=== PATIENT | male | born 1930 | race American Indian/Alaskan Native ===

== ENCOUNTER 2022-05-06 17:04 | Inpatient (IN) | payer MEDICARE ==
[2022-05-06] MEDS ORDERED: ATROPINE 1 MG/ML VIAL IV ONE (19:26)
[2022-05-06] MEDS ORDERED: SODIUM CHLORIDE 0.9% 1000 ML 1,000 ML IV ONE (19:27)
[2022-05-06] MEDS ORDERED: ATROPINE 0.1% (1 MG/10 ML) CARDIAC SYRINGE ONE (19:32)
--- NOTE | 2022-05-06 20:29 | XRay Report ---
CHEST 1 VIEW 05/06/2022 8:06 PM INDICATION / CLINICAL INFORMATION: dizziness, bradycardia, sob. COMPARISON: None available. FINDINGS: SUPPORT DEVICES: None. HEART / MEDIASTINUM: No significant abnormality. LUNGS / PLEURA: No significant pulmonary or pleural abnormality. No pneumothorax. ADDITIONAL FINDINGS: No significant additional findings. IMPRESSION: 1. No acute findings. Signer Name: Nacho Rayo MD Signed: 05/06/2022 8:25 PM Workstation Name: [id number]
--- NOTE | 2022-05-06 20:32 | Emergency Department Report ---
HPI - General Chief Complaint: Arrhythmia/Palpitations PUI?: No Time Seen by Provider: 05/06/22 19:35 - HPI HPI: Patient is a 89-year-old male with history of hypertension, brought in by EMS for low heart rate. HPI is provided by the patient's daughter, Renee London. Per her verbal report, the patient undergoes remote blood pressure and heart rate monitoring through the [facility]. She states that he last underwent evaluation of his vitals last week Friday. It was checked again today, which is Friday, and he was found to have "have a low heart rate." Patient has also been complaining of lightheadedness and dizziness for the past 2 days. Patient denies any pain. ED Review of Systems ROS: Stated complaint: SLOW HR Other details as noted in HPI Physical Exam - Physical Exam Vital Signs: Vital Signs 05/06/22 18:23 Temperature 97.8 F Pulse Rate 50 L Respiratory 18 Rate Blood Pressure 130/62 [Right] O2 Sat by Pulse 97 Oximetry General: Gen: pt is well appearing, no acute distress HEENT: Normocephalic atraumatic pupils equally round and reactive to light extraocular muscles intact sclera anicteric Neck: Full range of motion, no midline spinal tenderness palpation, no JVD, no carotid bruits, no nuchal rigidity CVS: S1-S2 regular rhythm, bradycardic, no gallops rubs or murmurs Pulmonary: Clear to auscultation bilaterally, no wheezes rales or rhonchi Abdomen: Soft nondistended nontender no guarding or rebound tenderness, no palpable deformities or step-offs, normal active bowel sounds, no hepatosplenomegaly, no pulsatile masses : Deferred Extremities: No cyanosis no clubbing no edema, intact distal peripheral pulses, Integumentary: Skin normal, no petechia no purpura no abscess no lacerations no evidence of trauma no evidence of infection Neuro: Patient is awake alert and oriented to person place time situation, mentating well, cranial nerves II through XII intact, no focal neurodeficits, sensation grossly tact Psych: Calm cooperative, mood affect normal ED Course Vital Signs 05/06/22 18:23 Temperature 97.8 F Pulse Rate 50 L Respiratory 18 Rate Blood Pressure 130/62 [Right] O2 Sat by Pulse 97 Oximetry - Reevaluation(s) Reevaluation #1: 05/06/22 20:48 I spoke to the pt's daughter, Renee London, . Reevaluation #2: 05/06/22 21:10 pt attempted to stand; c/o dizziness Reevaluation #3: 05/06/22 21:47 Patient's daughter is present. She is provided a copy of the patient's current medication regimen at home. Patient is on 1. Atorvastatin 40mg PO QHS 2. HCTZ/Lisinopril 20m PO 3. Zoloft 50mg PO q daily 4. Seroquil 100mg QHS 5. Gabapentin 100mg PO QHS 6/ Doxazopine 10mg PO daily - Consultations Consultation #1: 05/06/22 21:50: I spoke to the on-call teacher of the deaf/hard of hearing, . He independently reviewed the patient's electrocardiogram. Per his request, the patient is to receive of central line and is to be placed on a dopamine drip at 5 mcg/kg/min. He advises that the heart rate be targeted to 50 to 60 bpm, no higher. Patient will be seen by cardiology in the morning. - Central Line Placement Right Femoral Consent Obtained: written consent Time Out Performed: Yes Patient Placed on Monitor/Pulse Ox: Yes MD Prep: mask, gown, gloves Central Line Prep: Chlorhexidine scrub Local Anesthesia Used: Lidocaine 1%, with Epi Ultrasound Used for Placement: Yes Central Line Lumen Inserted: triple Reason for Insertion: High Alert Medication Bloods Obtained for Lab: No Central Line Position: good blood return, all ports aspirated, flus, sutured in place with 2-0 Dressing Applied: Tegaderm Patient Tolerated Procedure: well Complications: none ED Medical Decision Making - Lab Data Result diagrams: 05/06/22 20:10 05/06/22 20:10 - EKG Data -: EKG Interpreted by Me Rate: bradycardia - EKG Data When compared to previous EKG there are: no significant change, previous EKG unavailable 05/06/22 20:30 EKG interpreted by me: Ventricular rate 32 bpm. P waves are present and proceed every QRS complex. Intervals normal. No ST segment depressions or elevations. Patient has isolated T wave flattening in V3. No ectopic. No arrhythmia. Normal axis. Sinus bradycardia. - Radiology Data Radiology results: report reviewed - Medical Decision Making 89yo M p/w symptomatic bradycardia. Pt's heart rate remained 34-36bpm persistently. Labs and diagnostic imaging results reviewed. Case discussed via telephone with nursing home admissions director teacher of the deaf/hard of hearing, Dr. Stearns. See patient's electronic health record for his documented recommendation. Right femoral central line placed by me. Patient had dopamine drip placed at a rate of 5 mics per KG per minute. He has been admitted to the CCU by . Critical Care Time: Yes Critical care time in (mins) excluding proc time.: 30 Critical care attestation.: If time is entered above; I have spent that time in minutes in the direct care of this critically ill patient, excluding procedure time. ED Disposition Clinical Impression: Symptomatic bradycardia Disposition: ADMITTED INPATIENT Is pt being admited?: Yes Does the pt Need Aspirin: No Condition: Stable
[2022-05-06 20:49] LABS: Basophils # (Auto) 0.2 K/mm3 (0.0-0.1); Basophils % (Auto) 2.1 % (0.0-1.8); Eosinophils # (Auto) 0.1 K/mm3 (0.0-0.4); Lymphocytes # (Auto) 1.9 K/mm3 (1.2-5.4); Lymphocytes % (Auto) 26.1 % (13.4-35.0); Mean Corpuscular HGB Conc 31 % (32-34); Mean Corpuscular Volume 75 fl (84-94); Monocytes # (Auto) 0.5 K/mm3 (0.0-0.8); Monocytes % (Auto) 7.1 % (0.0-7.3); Platelet Count 138 K/mm3 (140-440); Red Blood Count 5.46 M/mm3 (3.65-5.03)
[2022-05-06 20:54] LABS: Hematocrit 41.1 % (35.5-45.6); Hemoglobin 12.5 gm/dl (11.8-15.2)
[2022-05-06 21:11] LABS: Alanine Aminotransferase 11 units/L (7-56); Albumin 3.8 g/dL (3.9-5); BUN/Creatinine Ratio 24; Blood Urea Nitrogen 22 mg/dL (9-20); Calcium 9.3 mg/dL (8.4-10.2); Hemolysis Index 13
[2022-05-06] MEDS ORDERED: DOPamine 800 MG/D5W 250ML 800 MG/250 ML BAG IV ONE (21:58)
--- NOTE | 2022-05-06 22:59 | Cat Scan Report ---
CT head/brain wo con INDICATION: dizziness, unsteady gait. TECHNIQUE: Routine CT head. All CT scans at this location are performed using CT dose reduction for A YARELY by means of automated exposure control. COMPARISON: None available. FINDINGS: Intracranial: Gomez-white matter differentiation is maintained. Probable chronic microvascular ischemi c changes are seen along the periventricular white matter. No intracranial hemorrhage. No extra axial collection. No hydrocephalus. No herniation. There is age-appropriate generalized atrophy. Sinuses: Paranasal sinuses and mastoid air cells are essentially clear. Orbits: Globes are intact. Calvarium: No acute fracture. IMPRESSION: 1. No acute intracranial abnormality. Signer Name: Marcellus Centeno MD Signed: 05/06/2022 10:55 PM Workstation Name: [id number]
[2022-05-06] MEDS ORDERED: QUEtiapine 100 MG TAB PO ONE (23:46)
[2022-05-06] MEDS ORDERED: MAGNESIUM HYDROXIDE (MOM) ORAL LIQD UDC PO PRN (23:57)
[2022-05-06] MEDS ORDERED: MORPHINE 4 MG/1 ML INJ IV PRN (23:57)
[2022-05-06] MEDS ORDERED: MORPHINE 2 MG/1 ML INJ IV PRN (23:57)
[2022-05-06] MEDS ORDERED: ONDANSETRON 4 MG/2 ML INJ IV PRN (23:57)
[2022-05-06] MEDS ORDERED: ACETAMINOPHEN 325 MG TAB PO PRN (23:57)
--- NOTE | 2022-05-07 00:10 | History and Physical Report ---
History of Present Illness Date of examination: 05/06/22 Date of admission: 05/06/2022 Chief complaint: Low heart rate History of present illness: 89-year-old male with known history of hypertension and dementia presenting to the emergency room via EMS today for low heart rate. Most of the history was gotten from the ER staff who indicates that patient had been receiving Lovenox vital sign monitoring through the [facility]. Last vital sign check was about a week ago. However vital signs were checked today was found to have a low heart rate. Patient was then encouraged to report to the emergency room. He received some atropine enroute to the hospital. Patient has been having lightheadedness and dizziness over the past 2 days had a little bit of changes in mental status today. Has been no fever or chills, no chest pain or shortness of breath no nausea vomiting and no abdominal pain. Work-up in the emergency room today, labs were remarkable for BUN of 22 and creatinine of 0.9. CT scan of the head was unremarkable. Chest x-ray shows no acute abnormality. Patient has been admitted for evaluation of his bradycardia and changes in mental status. Past History Past Medical History: hypertension, hyperlipidemia Past Surgical History: Other (unobtainable) Social history: other (Unobtainable) Family history: other (Unobtainable) Medications and Allergies Allergies Allergy/AdvReac Type Severity Reaction Status Date / Time No Known Allergies Allergy Verified 05/06/22 18:25 Active Meds: Active Medications Acetaminophen (Acetaminophen 325 Mg Tab) 650 mg PO Q6H PRN PRN Reason: Pain MILD(1-3)/Fever >100.5/AHMADI Heparin Sodium (Porcine) (Heparin 5,000 Unit/1 Ml Vial) 5,000 unit SUB-Q Q8HR NAZANIN Dopamine HCl/Dextrose (Dopamine 800 Mg/D5w 250ml) 800 mg in 250 mls @ 6.804 mls/hr IV TITR ONE; Protocol Stop: 05/08/22 10:42 Last Admin: 05/06/22 22:53 Dose: 5 mcg/kg/min, 6.804 mls/hr Sodium Chloride (Nacl 0.9% 1000 Ml) 1,000 mls @ 75 mls/hr IV DIRECT NAZANIN Magnesium Hydroxide (Magnesium Hydroxide (Mom) Oral Liqd Udc) 30 ml PO Q4H PRN PRN Reason: Constipation Morphine Sulfate (Morphine 2 Mg/1 Ml Inj) 2 mg IV Q4H PRN PRN Reason: Pain, Moderate (4-6) Morphine Sulfate (Morphine 4 Mg/1 Ml Inj) 4 mg IV Q4H PRN PRN Reason: Pain , Severe (7-10) Ondansetron HCl (Ondansetron 4 Mg/2 Ml Inj) 4 mg IV Q8H PRN PRN Reason: Nausea And Vomiting Sodium Chloride (Sodium Chloride 0.9% 10 Ml Flush Syringe) 10 ml IV BID NAZANIN Sodium Chloride (Sodium Chloride 0.9% 10 Ml Flush Syringe) 10 ml IV PRN PRN PRN Reason: LINE FLUSH Review of Systems ROS unobtainable: due to mental status Exam - Constitutional Vitals: Temp Pulse Resp BP Pulse Ox 97.9 F 49 L 17 169/50 98 05/06/22 21:28 05/06/22 21:28 05/06/22 21:28 05/06/22 21:28 05/06/22 21:28 General appearance: Present: no acute distress, well-nourished - EENT Eyes: Present: PERRL, EOM intact. Absent: scleral icterus ENT: hearing intact, clear oral mucosa, dentition normal - Neck Neck: Present: supple, normal ROM - Respiratory Respiratory effort: normal Respiratory: bilateral: CTA - Cardiovascular Rhythm: regular Heart Sounds: Present: S1 & S2. Absent: gallop, systolic murmur, diastolic murmur, rub, click - Extremities Extremities: no ischemia, pulses intact, pulses symmetrical, No edema, normal temperature, normal color, Full ROM Peripheral Pulses: within normal limits - Abdominal General gastrointestinal: Present: soft, non-tender, non-distended, normal bowel sounds. Absent: mass - Integumentary Integumentary: Present: clear, warm, dry, normal turgor. Absent: rash - Musculoskeletal Musculoskeletal: strength equal bilaterally - Psychiatric Psychiatric: cooperative - Neurologic Neurologic: other (Confused) HEART Score - HEART Score Troponin: Troponin T < 0.010 ng/mL (0.00-0.029) 05/06/22 20:10 Results - Labs CBC & Chem 7: 05/06/22 20:10 05/06/22 20:10 Labs: Abnormal lab results 05/06/22 05/06/22 Range/Units 20:10 20:10 RBC 5.46 H (3.65-5.03) M/mm3 MCV 75 L (84-94) fl MCH 23 L (28-32) pg MCHC 31 L (32-34) % Plt Count 138 L (140-440) K/mm3 Baso % (Auto) 2.1 H (0.0-1.8) % Baso # (Auto) 0.2 H (0.0-0.1) K/mm3 BUN 22 H (9-20) mg/dL Albumin 3.8 L (3.9-5) g/dL Assessment and Plan Assessment: 1.Symptomatic Bradycardia 2.Hypertension 3.Dyslipidemia 4.Dementia 5.Dehydration Plan: 1.Admitted into the intensive care unit 2.Placed on dopamine drip 3.Await cardiology evaluation & recommendations. 4.Resume routine home medications once reconciled. 5.Patient on IV fluid. Will monitor chemistry. DVT Prophylaxis: SQ heparin Code status: Full Code
[2022-05-07] MEDS ORDERED: diazePAM 10 MG/2 ML SYRINGE IV ONE ×2 (01:46→06:50)
[2022-05-07] MEDS ORDERED: diphenhydrAMINE 50 MG/ML VIAL IV ONE ×2 (01:46→06:50)
[2022-05-07] MEDS ORDERED: HALOPERIDOL LACTATE 5 MG/1 ML INJ IM ONE ×2 (01:46→06:50)
[2022-05-07] MEDS: HEPARIN 5,000 UNIT/1 ML VIAL SUB-Q SCH ×3 (08:10→21:55)
--- NOTE | 2022-05-07 08:47 | Consultation ---
History of Present Illness Consult date: 05/07/22 Requesting physician: ANUP QUEEN Reason for consult: other (Bradycardia, acute encephalopathy) History of present illness: 89-year-old male with known history of hypertension and dementia presenting to the emergency room via EMS today for low heart rate. Most of the history was gotten from the ER staff who indicates that patient had been receiving Lovenox vital sign monitoring through the [facility]. Last vital sign check was about a week ago. However vital signs were checked today was found to have a low h eart rate. Patient was then encouraged to report to the emergency room. He received some atropine enroute to the hospital. Patient has been having lightheadedness and dizziness over the past 2 days had a little bit of changes in mental status today. Has been no fever or chills, no chest pain or shortness of breath no nausea vomiting and no abdominal pain. Work-up in the emergency room today, labs were remarkable for BUN of 22 and creatinine of 0.9. CT scan of the head was unremarkable. Chest x-ray shows no acute abnormality. Patient has been admitted for evaluation of his bradycardia and changes in mental status. Critical care consult was placed. Patient seen and examined. Vitals, labs, medications, chart reviewed. He remains confused, family is visiting at the bedside. He has a right femoral CVL with dopamine at 5 Past History Past Medical History: hypertension, hyperlipidemia Social history: other (Unobtainable) Family history: no significant family history Medications and Allergies Allergies Allergy/AdvReac Type Severity Reaction Status Date / Time No Known Allergies Allergy Verified 05/06/22 18:25 Active Meds: Active Medications Acetaminophen (Acetaminophen 325 Mg Tab) 650 mg PO Q6H PRN PRN Reason: Pain MILD(1-3)/Fever >100.5/AHMADI Heparin Sodium (Porcine) (Heparin 5,000 Unit/1 Ml Vial) 5,000 unit SUB-Q Q8HR NAZANIN Dopamine HCl/Dextrose (Dopamine 800 Mg/D5w 250ml) 800 mg in 250 mls @ 6.804 mls/hr IV TITR ONE; Protocol Stop: 05/08/22 10:42 Last Admin: 05/06/22 22:53 Dose: 5 mcg/kg/min, 6.804 mls/hr Sodium Chloride (Nacl 0.9% 1000 Ml) 1,000 mls @ 75 mls/hr IV DIRECT NAZANIN Magnesium Hydroxide (Magnesium Hydroxide (Mom) Oral Liqd Udc) 30 ml PO Q4H PRN PRN Reason: Constipation Morphine Sulfate (Morphine 2 Mg/1 Ml Inj) 2 mg IV Q4H PRN PRN Reason: Pain, Moderate (4-6) Morphine Sulfate (Morphine 4 Mg/1 Ml Inj) 4 mg IV Q4H PRN PRN Reason: Pain , Severe (7-10) Ondansetron HCl (Ondansetron 4 Mg/2 Ml Inj) 4 mg IV Q8H PRN PRN Reason: Nausea And Vomiting Sodium Chloride (Sodium Chloride 0.9% 10 Ml Flush Syringe) 10 ml IV BID NAZANIN Sodium Chloride (Sodium Chloride 0.9% 10 Ml Flush Syringe) 10 ml IV PRN PRN PRN Reason: LINE FLUSH Review of Systems ROS unobtainable: due to mental status Physical Examination Vital signs: Vital Signs Temp Pulse Resp BP Pulse Ox 97.8 F 50 L 18 130/62 97 05/06/22 18:23 05/06/22 18:23 05/06/22 18:23 05/06/22 18:23 05/06/22 18:23 General appearance: agitated, appears uncomfortable, other (elderly man) Eyes: non-icteric ENT: oropharynx dry Neck: supple, no lymphadenopathy, no JVD Effort: normal Ascultation: Bilateral: clear, diminished breath sounds Cardiovascular: other (Bradycardia) Gastrointestinal: normoactive bowel sounds, soft, non-tender, other (right femoral CVL) Integumentary: normal Extremities: no cyanosis, pulses normal non-focal exam, pupils equal and round, other (confused) mood appropriate, affect normal Results - Laboratory Findings CBC and BMP: 05/10/22 03:52 05/10/22 03:52 Abnormal lab findings: Abnormal Labs 05/06/22 05/06/22 20:10 20:10 RBC 5.46 H MCV 75 L MCH 23 L MCHC 31 L Plt Count 138 L Baso % (Auto) 2.1 H Baso # (Auto) 0.2 H BUN 22 H Albumin 3.8 L - Diagnostic Findings Chest x-ray: image reviewed Assessment and Plan Symptomatic Bradycardia on dopamine Hypertension Acute Metabolic Encephalopathy with underlying history of Dementia Mild Thrombocytopenia (POA) Continue with Dopamine- will discuss with Cardiology. The Dopamine has not really helped his HR, and he is now hypertensive Supplemental oxygen as needed, keep SpO2 92-94% CT scan of the head was unremarkable. Frequent re-orientation, keep awake during the day, lights on Periods of agitation and increase agitation overnight, possible sundowning Avoid benzodiazepine to reduce the possibility of delirium PRN Analgesia for pain control Maintenance of sleep-wake cycle Fall precautions VTE prophylaxis- Heparin, monitor for bleeding Follow up surface echocardiography results. Updated the daughter and son at the bedside Bedside swallow evaluation, keep NPO until dysphagia is ruled out. CONDITION: CRITICAL PROGNOSIS; GUARDED CODE STATUS: FULL The high probability of a clinically significant, sudden or life threatening deterioration of the cardiovascular and neurology systemsrequired my full and direct attention, intervention and personal management. The aggregate critical care time was [35] minutes. This time is in addition to time spent performing reported procedures but includes the following: [x] Data Review and interpretation [x] Patient assessment and monitoring of vital signs [x] Documentation [x] Medication orders and management
--- NOTE | 2022-05-07 12:52 | Consultation ---
History of Present Illness Consult date: 05/07/22 Consult reason: bradycardia History of present illness: Patient is an 89-year-old man who was brought to the emergency room for comp laints of bradycardia. He is reported to be on remote hemodynamic and heart rate monitoring from the [facility], and as a result of recording low heart rates was referred to the emergency room for further evaluation. On arrival to the emergency room, his ECG was a marked sinus bradycardia at 32. The patient was reportedly treated with atropine with no remarkable improvement in heart rate, and subsequently started on dopamine infusion. He is currently in the ICU, on low-dose dopamine, his heart rate is currently 51. The patient appears elderly, frail, cachectic, unable to provide history. At this time, I am uncertain what modality of remote heart rate monitoring was involved. On his chest x-ray, there is no loop recorder or other device implantation. His TSH level measured in the emergency room was normal at 1.8. Past History Past Medical History: hypertension, hyperlipidemia Past Surgical History: Other (unobtainable) Social history: other (Unobtainable) Family history: other (Unobtainable) Medications and Allergies Allergies Allergy/AdvReac Type Severity Reaction Status Date / Time No Known Allergies Allergy Verified 05/06/22 18:25 Active Meds: Active Medications Acetaminophen (Acetaminophen 325 Mg Tab) 650 mg PO Q6H PRN PRN Reason: Pain MILD(1-3)/Fever >100.5/AHMADI Heparin Sodium (Porcine) (Heparin 5,000 Unit/1 Ml Vial) 5,000 unit SUB-Q Q8HR NAZANIN Last Admin: 05/07/22 08:10 Dose: 5,000 unit Dopamine HCl/Dextrose (Dopamine 800 Mg/D5w 250ml) 800 mg in 250 mls @ 6.804 mls/hr IV TITR ONE; Protocol Stop: 05/08/22 10:42 Last Admin: 05/06/22 22:53 Dose: 5 mcg/kg/min, 6.804 mls/hr Sodium Chloride (Nacl 0.9% 1000 Ml) 1,000 mls @ 75 mls/hr IV DIRECT NAZANIN Magnesium Hydroxide (Magnesium Hydroxide (Mom) Oral Liqd Udc) 30 ml PO Q4H PRN PRN Reason: Constipation Morphine Sulfate (Morphine 2 Mg/1 Ml Inj) 2 mg IV Q4H PRN PRN Reason: Pain, Moderate (4-6) Morphine Sulfate (Morphine 4 Mg/1 Ml Inj) 4 mg IV Q4H PRN PRN Reason: Pain , Severe (7-10) Ondansetron HCl (Ondansetron 4 Mg/2 Ml Inj) 4 mg IV Q8H PRN PRN Reason: Nausea And Vomiting Sodium Chloride (Sodium Chloride 0.9% 10 Ml Flush Syringe) 10 ml IV BID NAZANIN Last Admin: 05/07/22 11:17 Dose: Not Given Sodium Chloride (Sodium Chloride 0.9% 10 Ml Flush Syringe) 10 ml IV PRN PRN PRN Reason: LINE FLUSH Review of Systems ROS unobtainable: due to mental status Physical Examination Vital Signs Temp Pulse Resp BP Pulse Ox 97.8 F 50 L 18 130/62 97 05/06/22 18:23 05/06/22 18:23 05/06/22 18:23 05/06/22 18:23 05/06/22 18:23 General appearance: no acute distress, cachectic, other (Frail, elderly, poorly communicative) HEENT: Positive: PERRL Neck: Positive: neck supple Cardiac: Positive: Regular Rhythm Lungs: Positive: Decreased Breath Sounds Neuro: Positive: Weakness (Generalized lethargy) Abdomen: Positive: Soft Male genitourinary: Positive: deferred Skin: Positive: Clear Extremities: Present: +1 Edema Results 05/06/22 20:10 05/06/22 20:10 Cardiac Enzymes 05/06/22 Range/Units 20:10 AST 14 (5-40) units/L CBC 05/06/22 Range/Units 20:10 WBC 7.2 (4.5-11.0) K/mm3 RBC 5.46 H (3.65-5.03) M/mm3 Hgb 12.5 (11.8-15.2) gm/dl Hct 41.1 (35.5-45.6) % Plt Count 138 L (140-440) K/mm3 Lymph # (Auto) 1.9 (1.2-5.4) K/mm3 Preston # (Auto) 0.5 (0.0-0.8) K/mm3 Eos # (Auto) 0.1 (0.0-0.4) K/mm3 Baso # (Auto) 0.2 H (0.0-0.1) K/mm3 Comprehensive Metabolic Panel 05/06/22 Range/Units 20:10 Sodium 139 (137-145) mmol/L Potassium 4.6 (3.6-5.0) mmol/L Chloride 106.2 (98-107) mmol/L Carbon Dioxide 23 (22-30) mmol/L BUN 22 H (9-20) mg/dL Creatinine 0.9 (0.8-1.3) mg/dL Glucose 82 (75-100) mg/dL Calcium 9.3 (8.4-10.2) mg/dL AST 14 (5-40) units/L ALT 11 (7-56) units/L Alkaline Phosphatase 75 (35-129) units/L Total Protein 8.1 (6.3-8.2) g/dL Albumin 3.8 L (3.9-5) g/dL EKG interpretations - Telemetry EKG Rhythm: Sinus Bradycardia (Marked sinus bradycardia at 32, no ischemic changes) Assessment and Plan - Patient Problems (1) Symptomatic bradycardia Current Visit: Yes Status: Acute Plan to address problem: 89-year-old man admitted with symptomatic marked sinus bradycardia at 32, laboratory values including TSH level are unremarkable. Echocardiogram on this presentation showed a moderate severity dilated cardiomyopathy. Patient is not reported to be on AV ángel blocking therapy. I will consult electrophysiology, for further evaluation with regards to indication for device therapies.
--- NOTE | 2022-05-07 13:05 | Progress Note ---
Assessment and Plan Assessment and plan: 89-year-old male with known history of hypertension and dementia presenting to the emergency room via EMS today for low heart rate. Most of the history was gotten from the ER staff who indicates that patient had been receiving Lovenox vital sign monitoring through the [facility]. Last vital sign check was about a week ago. However vital signs were checked today was found to have a low heart rate. Patient was then encouraged to report to the emergency room. He received some atropine enroute to the hospital. Patient has been having lightheadedness and dizziness over the past 2 days had a little bit of changes in mental status on admission. Has been no fever or chills, no chest pain or shortness of breath no nausea vomiting and no abdominal pain. Work-up in the emergency room today, labs were remarkable for BUN of [address] creatinine of 0[address]9. [address] scan of the head was unremarkable. Chest x-ray shows no acute abnormality. Patient has been admitted for evaluation of his bradycardia and changes in mental status. 05/07: From review of records it appears that cardiology was consulted from the ED and recommended that dopamine be started on the patient and this was done patient has maintained a heart rate in the 55's. But continues with a metabolic encephalopathy of unknown source. I have tried to reach out to the family but no one has picked up the phone. We will continue current management we will obtain neurology consultation for the altered mental status we will obtain records from the [facility]. We will also await the urinalysis that has been ordered. Wean restraints as tolerated It is unclear to me why the patient was on Lovenox outpatient. However patient has thrombocytopenia hope that the records will shed some light 1.Symptomatic Bradycardia 2.Hypertension 3.Dyslipidemia 4.acute on chronic metabolic encephalopathy with underlying history of dementia notable change in status- 5.Dehydration 6. Thrombocytopenia Plan: 1.Admitted into the intensive care unit 2.Placed on dopamine drip 3.we will obtain neurology consultation. Appreciate cardiology evaluation & recommendations. 4.Resume routine home medications once reconciled. 5.special distribution clerk input noted 6. patient on IV fluid. Will monitor chemistry. DVT Prophylaxis: SQ heparin Code status: Full Code The high probability of a clinically significant, sudden or life threatening deterioration of the [cardiac, neurology] system(s) required my full and direct attention, intervention and personal management. The aggregate critical care time was [60] minutes. This time is in addition to time spent performing reported procedures but includes the following: [x] Data Review and interpretation [x] Patient assessment and monitoring of vital signs [x] Documentation [x] Medication orders and management History Interval history: Patient seen and examined this morning confused. Was found in restraints. Continues on dopamine. No family at bedside Hospitalist Physical - Physical exam Narrative exam: General appearance: Present: no acute distress, well-nourished, CONFUSED was on restraints at my initial exam - EENT Eyes: Present: PERRL, EOM intact. Absent: scleral icterus ENT: hearing intact, clear oral mucosa, dentition normal - Neck Neck: Present: supple, normal ROM - Respiratory Respiratory effort: normal Respiratory: bilateral: CTA - Cardiovascular Rhythm: regular Heart Sounds: Present: S1 & S2. Absent: gallop, systolic murmur, diastolic murmur, rub, click - Extremities Extremities: no ischemia, pulses intact, pulses symmetrical, No edema, normal temperature, normal color, Full ROM Peripheral Pulses: within normal limits - Abdominal General gastrointestinal: Present: soft, non-tender, non-distended, normal bowel sounds. Absent: mass - Integumentary Integumentary: Present: clear, warm, dry, normal turgor. Absent: rash - Musculoskeletal Musculoskeletal: strength equal bilaterally - Psychiatric Psychiatric: cooperative - Neurologic Neurologic: other (Confused) - Constitutional Vitals: Temp Pulse Resp BP Pulse Ox 98.0 F 56 L 15 139/73 99 05/07/22 05:28 05/07/22 11:15 05/07/22 10:00 05/07/22 10:00 05/07/22 10:00 General appearance: Present: no acute distress, cachectic, other (Frail, elderly, poorly communicative) HEART Score - HEART Score Troponin: Troponin T < 0.010 ng/mL (0.00-0.029) 05/06/22 20:10 Results - Labs CBC & Chem 7: 05/06/22 20:10 05/06/22 20:10 Labs: Laboratory Last Values WBC 7.2 K/mm3 (4.5-11.0) 05/06/22 20:10 RBC 5.46 M/mm3 (3.65-5.03) H 05/06/22 20:10 Hgb 12.5 gm/dl (11.8-15.2) 05/06/22 20:10 Hct 41.1 % (35.5-45.6) 05/06/22 20:10 MCV 75 fl (84-94) L 05/06/22 20:10 MCH 23 pg (28-32) L 05/06/22 20:10 MCHC 31 % (32-34) L 05/06/22 20:10 RDW 15.0 % (13.2-15.2) 05/06/22 20:10 Plt Count 138 K/mm3 (140-440) L 05/06/22 20:10 Lymph % (Auto) 26.1 % (13.4-35.0) 05/06/22 20:10 [place] % (Auto) 7.1 % (0.0-7.3) 05/06/22 20:10 Eos % (Auto) 1.0 % (0.0-4.3) 05/06/22 20:10 Baso % (Auto) 2.1 % (0.0-1.8) H 05/06/22 20:10 Lymph # (Auto) 1.9 K/mm3 (1.2-5.4) 05/06/22 20:10 [place] # (Auto) 0.5 K/mm3 (0.0-0.8) 05/06/22 20:10 Eos # (Auto) 0.1 K/mm3 (0.0-0.4) 05/06/22 20:10 Baso # (Auto) 0.2 K/mm3 (0.0-0.1) H 05/06/22 20:10 Seg Neutrophils % 63.7 % (40.0-70.0) 05/06/22 20:10 Seg Neutrophils # 4.6 K/mm3 (1.8-7.7) 05/06/22 20:10 Sodium 139 mmol/L (137-145) 05/06/22 20:10 Potassium 4.6 mmol/L (3.6-5.0) 05/06/22 20:10 Chloride 106.2 mmol/L (98-107) 05/06/22 20:10 Carbon Dioxide 23 mmol/L (22-30) 05/06/22 20:10 Anion Gap 14 mmol/L 05/06/22 20:10 BUN 22 mg/dL (9-20) H 05/06/22 20:10 Creatinine 0.9 mg/dL (0.8-1.3) 05/06/22 20:10 Estimated GFR > 60 ml/min 05/06/22 20:10 BUN/Creatinine Ratio 24 % 05/06/22 20:10 Glucose 82 mg/dL (75-100) 05/06/22 20:10 Calcium 9.3 mg/dL (8.4-10.2) 05/06/22 20:10 Total Bilirubin 0.80 mg/dL (0.1-1.2) 05/06/22 20:10 AST 14 units/L (5-40) 05/06/22 20:10 ALT 11 units/L (7-56) 05/06/22 20:10 Alkaline Phosphatase 75 units/L (35-129) 05/06/22 20:10 Troponin T < 0.010 ng/mL (0.00-0.029) 05/06/22 20:10 NT-Pro-B Natriuret Pep 322.6 pg/mL (0-900) 05/06/22 20:10 Total Protein 8.1 g/dL (6.3-8.2) 05/06/22 20:10 Albumin 3.8 g/dL (3.9-5) L 05/06/22 20:10 Albumin/Globulin Ratio 0.9 % 05/06/22 20:10 TSH 1.880 mlU/mL (0.270-4.200) 05/06/22 20:10 Free T4 0.98 ng/dL (0.76-1.46) 05/06/22 20:10 Active Medications - Current Medications Current Medications: Generic Name Dose Route Start Last Admin Trade Name Freq PRN Reason Stop Dose Admin Acetaminophen 650 mg 05/06/22 23:57 Acetaminophen 325 Mg Tab PO Q6H PRN Pain MILD(1-3)/Fever >100.5/AHMADI Heparin Sodium (Porcine) 5,000 unit 05/07/22 06:00 05/07/22 08:10 Heparin 5,000 Unit/1 Ml Vial SUB-Q 5,000 unit Q8HR NAZANIN Administration Dopamine HCl/Dextrose 800 mg in 250 mls @ 6.804 mls/hr 05/06/22 21:58 05/06/22 22:53 Dopamine 800 Mg/D5w 250ml IV 05/08/22 10:42 5 mcg/kg/min TITR ONE 6.804 mls/hr Administration Protocol 5 MCG/KG/MIN Sodium Chloride 1,000 mls @ 75 mls/hr 05/06/22 23:45 Nacl 0.9% 1000 Ml IV DIRECT NAZANIN Magnesium Hydroxide 30 ml 05/06/22 23:57 Magnesium Hydroxide (Mom) Oral Liqd Udc PO Q4H PRN Constipation Morphine Sulfate 2 mg 05/06/22 23:57 Morphine 2 Mg/1 Ml Inj IV Q4H PRN Pain, Moderate (4-6) Morphine Sulfate 4 mg 05/06/22 23:57 Morphine 4 Mg/1 Ml Inj IV Q4H PRN Pain , Severe (7-10) Ondansetron HCl 4 mg 05/06/22 23:57 Ondansetron 4 Mg/2 Ml Inj IV Q8H PRN Nausea And Vomiting Sodium Chloride 10 ml 05/07/22 10:00 05/07/22 11:17 Sodium Chloride 0.9% 10 Ml Flush Syringe IV Not Given BID NAZANIN Sodium Chloride 10 ml 05/06/22 23:57 Sodium Chloride 0.9% 10 Ml Flush Syringe IV PRN PRN LINE FLUSH
[2022-05-07] MEDS: SODIUM CHLORIDE 0.9% 1000 ML 1,000 ML IV SCH ×2 (13:15→22:17)
--- NOTE | 2022-05-07 13:19 | Electrocardiograph Report ---
[facility] Test Date: 2022-05-06 Test Time: 20:11:52 Pat Name: NIKOLAY ROCHA Department: Room: A251 Gender: M Proofreader: JESUS : [id number] Requested By: EDU AZAR Order Number: [id number] Reading MD: Carla Zhang Measurements Intervals [place] Rate: 32 P: 45 MO: 190 QRS: -1 QRSD: 100 T: 47 QT: 547 QTc: 401 Interpretive Statements Marked sinus bradycardia Poor R wave progression No previous ECG available for comparison Electronically Signed On 05-07-2022 13:19:28 EDT by Carla Zhang
--- NOTE | 2022-05-07 15:26 | Consultation ---
History of Present Illness Consult date: 05/07/22 Reason for Consult: Confusion History of present illness: The patients history of ? memory Loss . There is no worsening in Dementia . Past History Past Medical History: hypertension, hyperlipidemia Past Surgical History: Other (unobtainable) Social history: other (Unobtainable) Family history: other (Unobtainable) Medications and Allergies Allergies Allergy/AdvReac Type Severity Reaction Status Date / Time No Known Allergies Allergy Verified 05/06/22 18:25 Active Meds: Active Medications Acetaminophen (Acetaminophen 325 Mg Tab) 650 mg PO Q6H PRN PRN Reason: Pain MILD(1-3)/Fever >100.5/AHMADI Heparin Sodium (Porcine) (Heparin 5,000 Unit/1 Ml Vial) 5,000 unit SUB-Q Q8HR [facility], [facility] Last Admin: 05/07/22 13:15 Dose: 5,000 unit Dopamine HCl/Dextrose (Dopamine 800 Mg/D5w 250ml) 800 mg in 250 mls @ 6.804 mls/hr IV TITR ONE; Protocol Stop: 05/08/22 10:42 Last Admin: 05/06/22 22:53 Dose: 5 mcg/kg/min, 6.804 mls/hr Sodium Chloride (Nacl 0.9% 1000 Ml) 1,000 mls @ 75 mls/hr IV DIRECT [facility], [facility] Last Admin: 05/07/22 13:15 Dose: 75 mls/hr Magnesium Hydroxide (Magnesium Hydroxide (Mom) Oral Liqd Udc) 30 ml PO Q4H PRN PRN Reason: Constipation Morphine Sulfate (Morphine 2 Mg/1 Ml Inj) 2 mg IV Q4H PRN PRN Reason: Pain, Moderate (4-6) Morphine Sulfate (Morphine 4 Mg/1 Ml Inj) 4 mg IV Q4H PRN PRN Reason: Pain , Severe (7-10) Ondansetron HCl (Ondansetron 4 Mg/2 Ml Inj) 4 mg IV Q8H PRN PRN Reason: Nausea And Vomiting Sodium Chloride (Sodium Chloride 0.9% 10 Ml Flush Syringe) 10 ml IV BID [facility], [facility] Last Admin: 05/07/22 11:17 Dose: Not Given Sodium Chloride (Sodium Chloride 0.9% 10 Ml Flush Syringe) 10 ml IV PRN PRN PRN Reason: LINE FLUSH Physical Examination - Vital Signs Vital Signs: Vital Signs Temp Pulse Resp BP Pulse Ox 97.8 F 50 L 18 130/62 97 05/06/22 18:23 05/06/22 18:23 05/06/22 18:23 05/06/22 18:23 05/06/22 18:23 - Physical Exam Narrative exam: The patient is alert moves all 4 extremity , gait is not tested . Results - Laboratory Findings CBC and BMP: 05/06/22 20:10 05/06/22 20:10 Abnormal Lab Findings: Abnormal Labs 05/06/22 05/06/22 20:10 20:10 RBC 5.46 H MCV 75 L MCH 23 L MCHC 31 L Plt Count 138 L Baso % (Auto) 2.1 H Baso # (Auto) 0.2 H BUN 22 H Albumin 3.8 L Assessment and Plan 1. Improvment in Encephalopathy - ? possibly underlying Dementia . 2. Reviewed Head CT - no evidence of acute process. 3. No additional recommendations from Neurology , some of the issues can be addresed as out patient . Dr. Williamson
[2022-05-07] MEDS ORDERED: HALOPERIDOL LACTATE 5 MG/1 ML INJ IV ONE (20:00)
[2022-05-08 04:35] LABS: Basophils % (Auto) 0.4 % (0.0-1.8); Eosinophils % (Auto) 0.1 % (0.0-4.3); Hematocrit 38.8 % (35.5-45.6); Hemoglobin 12.4 gm/dl (11.8-15.2); Lymphocytes # (Auto) 1.2 K/mm3 (1.2-5.4); Lymphocytes % (Auto) 10.1 % (13.4-35.0); Mean Corpuscular HGB Conc 32 % (32-34); Mean Corpuscular Volume 74 fl (84-94); Monocytes % (Auto) 8.4 % (0.0-7.3); Platelet Count 147 K/mm3 (140-440); Red Blood Count 5.27 M/mm3 (3.65-5.03)
[2022-05-08 04:42] LABS: BUN/Creatinine Ratio 21; Blood Urea Nitrogen 17 mg/dL (9-20); Calcium 9.5 mg/dL (8.4-10.2); Hemolysis Index 52
[2022-05-08] MEDS: HEPARIN 5,000 UNIT/1 ML VIAL SUB-Q SCH ×3 (05:19→21:19)
[2022-05-08] MEDS ORDERED: DOPamine 800 MG/D5W 250ML 800 MG/250 ML BAG IV SCH (09:00)
[2022-05-08] MEDS: FAMOTIDINE 20 MG TAB PO SCH (10:27)
--- NOTE | 2022-05-08 11:24 | Progress Note ---
<AILYN PEMBERTON - Last Filed: 05/08/22 17:54> Assessment and Plan Assessment and plan: This is a 89-year-old male with known past medical history of HTN and dementia admitted for AMS and symptomatic bradycardia. Hospital Course to Date: 05/07: From review of records it appears that cardiology was consulted from the ED and recommended that dopamine be started on the patient and this was done p atient has maintained a heart rate in the 55's. But continues with a metabolic encephalopathy of unknown source. I have tried to reach out to the family but no one has picked up the phone. We will continue current management we will obtain neurology consultation for the altered mental status we will obtain records from the [place]. We will also await the urinalysis that has been ordered. Wean restraints as tolerated. It is unclear to me why the patient was on Lovenox outpatient. However patient has thrombocytopenia hope that the records will shed some light. 05/08: Patient remains in SB on the monitor, HR in the 40s-50s, still on dopamine gtt and hypertensive SBP in the 180s-190s this am. Per EP cardio plan for tentative PPM placement tomorrow. Wean dopanine gtt as tolerated to maintain HR in the 40-50s. Plan of care discussed with patient and his daughter at the bedside. All questions and concerns were addressed at this time. They verbalized understanding and agreed with current care plan. Medical records from the [place] pending. Assessment and Plan #Symptomatic Bradycardia #Hypertension #Moderate Pulmonary HTN - Presented with AMS, lightheadedness, and dizziness X2 days - EKG in the ED reveal SB, HR in the 30s - Dopamine gtt was initiated - 2D Echo noted, LVEF 65-70%, with moderate pulmonary HTN RSVP 54 - EP Cardio and Cardiology is following - Plan for tentative PPM placement tomorrow - NPO after midnight - Continue blood pressure monitor per protocol - Worsen HTN probably due to dopamine gtt - Titrate gtt to maintain HR in the 40s-50s - [facility] is also following - Outpatient follow up once more stable with pulmonary and cardio for further workup/eval for pulmonary HTN #Acute Metabolic Encephalopathy #Underlying history of Dementia - Probably secondary to above - CT scan of the head was unremarkable. - Mentation with significant improvement this am, fully AAO - Periods of agitation and increase agitation overnight, possible sundowning - Frequent reorientation - Avoid benzodiazepine to reduce the possibility of delirium - PRN Analgesia for pain control - Maintenance of sleep-wake cycle - Fall precaution - Neurology is also following #Thrombocytopenia (POA) - Present on admit - H&H stable, no s/s of any active bleeding - On VTE proph - Continue to trend CBC - Transfuse for Hgb less than 7 - Medical records requested from the [place] #GI/DVT Prophylaxis - PPI- Pepcid - Heparin SubQ - SCDs to bilateral lower extremities while in bed #Advance Care Planning - Disease education data, care plan, diagnoses, and prognosis were discussed with the patient and her daughter at the bedside. Patient is a FULL code. They acknowledged understanding and agreed with current care plan. The high probability of a clinically significant, sudden or life threatening deterioration of the [multiple] system(s) required my full and direct attention, intervention and personal management. The aggregate critical care time was [60] minutes. This time is in addition to time spent performing reported procedures but includes the following: [x] Data Review and interpretation [x] Patient assessment and monitoring of vital signs [x] Documentation [x] Medication orders and management Disposition Plan: ICU Total Time Spent with Patient (Minutes): 60 History Interval history: Patient seen and examined at the bedside. Fully AAO this am, stable on RA, denied any pain nor any discomfort at this time. Patient is hypertensive, remains on Dopamine gtt, HR in the 40-50s, SB on the monitor. Hospitalist Physical - Constitutional Vitals: Temp Pulse Resp BP Pulse Ox 97.7 F 50 L 22 197/69 99 05/08/22 04:00 05/08/22 11:00 05/08/22 11:00 05/08/22 11:00 05/08/22 11:00 General appearance: Present: no acute distress, cachectic - EENT Eyes: Present: PERRL, EOM intact ENT: hearing intact - Neck Neck: Present: normal ROM - Respiratory Respiratory effort: normal Respiratory: bilateral: diminished - Cardiovascular Rhythm: regular Heart Sounds: Present: S1 & S2 - Extremities Extremities: no ischemia, pulses intact, pulses symmetrical Peripheral Pulses: within normal limits - Abdominal General gastrointestinal: soft, non-distended, normal bowel sounds - Integumentary Integumentary: Present: warm, dry - Psychiatric Psychiatric: appropriate mood/affect, cooperative - Neurologic Neurologic: CNII-XII intact, moves all extremities - Allied Health Allied health notes reviewed: nursing, case management HEART Score - HEART Score Troponin: Troponin T < 0.010 ng/mL (0.00-0.029) 05/06/22 20:10 Results - Labs CBC & Chem 7: 05/08/22 04:10 05/08/22 04:10 Labs: Laboratory Last Values WBC 12.1 K/mm3 (4.5-11.0) H 05/08/22 04:10 RBC 5.27 M/mm3 (3.65-5.03) H 05/08/22 04:10 Hgb 12.4 gm/dl (11.8-15.2) 05/08/22 04:10 Hct 38.8 % (35.5-45.6) 05/08/22 04:10 MCV 74 fl (84-94) L 05/08/22 04:10 MCH 24 pg (28-32) L 05/08/22 04:10 MCHC 32 % (32-34) 05/08/22 04:10 RDW 15.0 % (13.2-15.2) 05/08/22 04:10 Plt Count 147 K/mm3 (140-440) 05/08/22 04:10 Lymph % (Auto) 10.1 % (13.4-35.0) L 05/08/22 04:10 But[place] % (Auto) 8.4 % (0.0-7.3) H 05/08/22 04:10 Eos % (Auto) 0.1 % (0.0-4.3) 05/08/22 04:10 Baso % (Auto) 0.4 % (0.0-1.8) 05/08/22 04:10 Lymph # (Auto) 1.2 K/mm3 (1.2-5.4) 05/08/22 04:10 [place]ts # (Auto) 1.0 K/mm3 (0.0-0.8) H 05/08/22 04:10 Eos # (Auto) 0.0 K/mm3 (0.0-0.4) 05/08/22 04:10 Baso # (Auto) 0.0 K/mm3 (0.0-0.1) 05/08/22 04:10 Seg Neutrophils % 81.0 % (40.0-70.0) H 05/08/22 04:10 Seg Neutrophils # 9.8 K/mm3 (1.8-7.7) H 05/08/22 04:10 Sodium 137 mmol/L (137-145) 05/08/22 04:10 Potassium 4.0 mmol/L (3.6-5.0) 05/08/22 04:10 Chloride 105.1 mmol/L (98-107) 05/08/22 04:10 Carbon Dioxide 23 mmol/L (22-30) 05/08/22 04:10 Anion Gap 13 mmol/L 05/08/22 04:10 BUN 17 mg/dL (9-20) 05/08/22 04:10 Creatinine 0.8 mg/dL (0.8-1.3) 05/08/22 04:10 Estimated GFR > 60 ml/min 05/08/22 04:10 BUN/Creatinine Ratio 21 % 05/08/22 04:10 Glucose 118 mg/dL (75-100) H 05/08/22 04:10 Calcium 9.5 mg/dL (8.4-10.2) 05/08/22 04:10 Total Bilirubin 0.80 mg/dL (0.1-1.2) 05/06/22 20:10 AST 14 units/L (5-40) 05/06/22 20:10 ALT 11 units/L (7-56) 05/06/22 20:10 Alkaline Phosphatase 75 units/L (35-129) 05/06/22 20:10 Troponin T < 0.010 ng/mL (0.00-0.029) 05/06/22 20:10 NT-Pro-B Natriuret Pep 322.6 pg/mL (0-900) 05/06/22 20:10 Total Protein 8.1 g/dL (6.3-8.2) 05/06/22 20:10 Albumin 3.8 g/dL (3.9-5) L 05/06/22 20:10 Albumin/Globulin Ratio 0.9 % 05/06/22 20:10 TSH 1.880 mlU/mL (0.270-4.200) 05/06/22 20:10 Free T4 0.98 ng/dL (0.76-1.46) 05/06/22 20:10 Steward/IV: Voiding Method Condom Catheter Active Medications - Current Medications Current Medications: Generic Name Dose Route Start Last Admin Trade Name Freq PRN Reason Stop Dose Admin Acetaminophen 650 mg 05/06/22 23:57 Acetaminophen 325 Mg Tab PO Q6H PRN Pain MILD(1-3)/Fever >100.5/AHMADI Famotidine 20 mg 05/08/22 10:00 05/08/22 10:27 Famotidine 20 Mg Tab PO 20 mg QDAY NAZANIN Administration Heparin Sodium (Porcine) 5,000 unit 05/07/22 06:00 05/08/22 05:19 Heparin 5,000 Unit/1 Ml Vial SUB-Q 5,000 unit Q8HR NAZANIN Administration Dopamine HCl/Dextrose 800 mg in 250 mls @ 6.804 mls/hr 05/08/22 09:00 Dopamine 800 Mg/D5w 250ml IV DIRECT NAZANIN Protocol 5 MCG/KG/MIN Magnesium Hydroxide 30 ml 05/06/22 23:57 Magnesium Hydroxide (Mom) Oral Liqd Udc PO Q4H PRN Constipation Morphine Sulfate 2 mg 05/06/22 23:57 05/07/22 22:14 Morphine 2 Mg/1 Ml Inj IV 2 mg Q4H PRN Administration Pain, Moderate (4-6) Ondansetron HCl 4 mg 05/06/22 23:57 Ondansetron 4 Mg/2 Ml Inj IV Q8H PRN Nausea And Vomiting Sodium Chloride 10 ml 05/07/22 10:00 05/08/22 10:27 Sodium Chloride 0.9% 10 Ml Flush Syringe IV 10 ml BID NAZANIN Administration Sodium Chloride 10 ml 05/06/22 23:57 Sodium Chloride 0.9% 10 Ml Flush Syringe IV PRN PRN LINE FLUSH Nutrition/Malnutrition Assess - Dietary Evaluation Nutrition/Malnutrition Findings: Nutrition Notes Start: 05/07/22 14:12 Freq: Status: Active Protocol: Document 05/07/22 14:12 CL (Rec: 05/07/22 14:23 CL [id number]) Nutrition Notes Need for Assessment generated from: MD Order,Education Initial or Follow up Brief Note Current Diagnosis Hypertension,Hyperlipidemia Other Pertinent Diagnosis Bradycardia, Dehydration, Metabolic Encephalopathy, Thrombocytopenia, ... Current Diet NPO, Cardiac Diet (from B ). 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 Weight Status Appropriate Subjective/Other Information RD consult for nutrition education assessment. Pt currently on NPO, plans to start PO tomorrow morning. Pt is on Room Air, O2 saturation @ 96%, according to Physical Assessment History notes. Pt still in critical condition , not a candidate for Nutrition Education at the time, will assess feasibility on F/U. Percent of energy/protein needs met: Pt currently on NPO. Prescribed Cardiac Diet provides for energy/protein needs (2,230 Kcal/85 g) during LOS. Nutrition Intervention Follow-Up By: 05/14/22 Additional Comments Nutrition education will be provided at F/U, if feasible. When pertinent, start monitoring food tolerance, %PO intake of meals, and BM. <RATNA TINOCO - Last Filed: 05/09/22 07:29> Assessment and Plan Assessment and plan: I saw and evaluated the patient. I agree with the findings and the plan of care as documented in the Nurse Practitioner's~note, with the following corrections and additions. Hospitalist Physical - Constitutional Vitals: Temp Pulse Resp BP Pulse Ox 98.3 F 39 L 12 148/59 100 05/09/22 05:45 05/09/22 07:00 05/09/22 07:00 05/09/22 07:00 05/09/22 07:00 HEART Score - HEART Score Troponin: Troponin T < 0.010 ng/mL (0.00-0.029) 05/06/22 20:10 Results - Labs CBC & Chem 7: 05/09/22 04:27 05/09/22 04:27 Labs: Laboratory Last Values WBC 12.4 K/mm3 (4.5-11.0) H 05/09/22 04:27 RBC 5.40 M/mm3 (3.65-5.03) H 05/09/22 04:27 Hgb 12.6 gm/dl (11.8-15.2) 05/09/22 04:27 Hct 40.2 % (35.5-45.6) 05/09/22 04:27 MCV 74 fl (84-94) L 05/09/22 04:27 MCH 23 pg (28-32) L 05/09/22 04:27 MCHC 31 % (32-34) L 05/09/22 04:27 RDW 14.7 % (13.2-15.2) 05/09/22 04:27 Plt Count 133 K/mm3 (140-440) L 05/09/22 04:27 Lymph % (Auto) 10.1 % (13.4-35.0) L 05/08/22 04:10 Butts % (Auto) 8.4 % (0.0-7.3) H 05/08/22 04:10 Eos % (Auto) 0.1 % (0.0-4.3) 05/08/22 04:10 Baso % (Auto) 0.4 % (0.0-1.8) 05/08/22 04:10 Lymph # (Auto) 1.2 K/mm3 (1.2-5.4) 05/08/22 04:10 [place]ts # (Auto) 1.0 K/mm3 (0.0-0.8) H 05/08/22 04:10 Eos # (Auto) 0.0 K/mm3 (0.0-0.4) 05/08/22 04:10 Baso # (Auto) 0.0 K/mm3 (0.0-0.1) 05/08/22 04:10 Seg Neutrophils % 81.0 % (40.0-70.0) H 05/08/22 04:10 Seg Neutrophils # 9.8 K/mm3 (1.8-7.7) H 05/08/22 04:10 PT 15.2 Sec. (12.2-14.9) H 05/09/22 04:27 INR 1.08 (0.87-1.13) 05/09/22 04:27 APTT 27.8 Sec. (24.2-36.6) 05/09/22 04:27 Sodium 140 mmol/L (137-145) 05/09/22 04:27 Potassium 4.1 mmol/L (3.6-5.0) 05/09/22 04:27 Chloride 103.7 mmol/L (98-107) 05/09/22 04:27 Carbon Dioxide 25 mmol/L (22-30) 05/09/22 04:27 Anion Gap 15 mmol/L 05/09/22 04:27 BUN 21 mg/dL (9-20) H 05/09/22 04:27 Creatinine 0.8 mg/dL (0.8-1.3) 05/09/22 04:27 Estimated GFR > 60 ml/min 05/09/22 04:27 BUN/Creatinine Ratio 26 % 05/09/22 04:27 Glucose 102 mg/dL (75-100) H 05/09/22 04:27 Calcium 9.5 mg/dL (8.4-10.2) 05/09/22 04:27 Phosphorus 2.70 mg/dL (2.5-4.5) 05/09/22 04:27 Magnesium 2.20 mg/dL (1.7-2.3) 05/09/22 04:27 Total Bilirubin 0.80 mg/dL (0.1-1.2) 05/06/22 20:10 AST 14 units/L (5-40) 05/06/22 20:10 ALT 11 units/L (7-56) 05/06/22 20:10 Alkaline Phosphatase 75 units/L (35-129) 05/06/22 20:10 Troponin T < 0.010 ng/mL (0.00-0.029) 05/06/22 20:10 NT-Pro-B Natriuret Pep 322.6 pg/mL (0-900) 05/06/22 20:10 Total Protein 8.1 g/dL (6.3-8.2) 05/06/22 20:10 Albumin 3.8 g/dL (3.9-5) L 05/06/22 20:10 Albumin/Globulin Ratio 0.9 % 05/06/22 20:10 TSH 1.880 mlU/mL (0.270-4.200) 05/06/22 20:10 Free T4 0.98 ng/dL (0.76-1.46) 05/06/22 20:10 Steward/IV: Voiding Method Incontinent Active Medications - Current Medications Current Medications: Generic Name Dose Route Start Last Admin Trade Name Freq PRN Reason Stop Dose Admin Acetaminophen 650 mg 05/06/22 23:57 Acetaminophen 325 Mg Tab PO Q6H PRN Pain MILD(1-3)/Fever >100.5/AHMADI Famotidine 20 mg 05/08/22 10:00 05/08/22 10:27 Famotidine 20 Mg Tab PO 20 mg QDAY NAZANIN Administration Heparin Sodium (Porcine) 5,000 unit 05/07/22 06:00 05/08/22 21:19 Heparin 5,000 Unit/1 Ml Vial SUB-Q 5,000 unit Q8HR NAZANIN Administration Hydralazine HCl 10 mg 05/08/22 17:00 Hydralazine 20 Mg/1 Ml Inj IV Q4H PRN Hypertension Dopamine HCl/Dextrose 800 mg in 250 mls @ 6.804 mls/hr 05/08/22 09:00 05/08/22 15:15 Dopamine 800 Mg/D5w 250ml IV 2 mcg/kg/min DIRECT NAZANIN 2.722 mls/hr Administration Protocol 5 MCG/KG/MIN Magnesium Hydroxide 30 ml 05/06/22 23:57 Magnesium Hydroxide (Mom) Oral Liqd Udc PO Q4H PRN Constipation Morphine Sulfate 2 mg 05/06/22 23:57 05/07/22 22:14 Morphine 2 Mg/1 Ml Inj IV 2 mg Q4H PRN Administration Pain, Moderate (4-6) Ondansetron HCl 4 mg 05/06/22 23:57 Ondansetron 4 Mg/2 Ml Inj IV Q8H PRN Nausea And Vomiting Sodium Chloride 10 ml 05/07/22 10:00 05/08/22 22:49 Sodium Chloride 0.9% 10 Ml Flush Syringe IV 10 ml BID NAZANIN Administration Sodium Chloride 10 ml 05/06/22 23:57 Sodium Chloride 0.9% 10 Ml Flush Syringe IV PRN PRN LINE FLUSH Nutrition/Malnutrition Assess - Dietary Evaluation Nutrition/Malnutrition Findings: Nutrition Notes Start: 05/07/22 14:12 Freq: Status: Active Protocol: Document 05/07/22 14:12 CL (Rec: 05/07/22 14:23 CL [id number]) Nutrition Notes Need for Assessment generated from: MD Order,Education Initial or Follow up Brief Note Current Diagnosis Hypertension,Hyperlipidemia Other Pertinent Diagnosis Bradycardia, Dehydration, Metabolic Encephalopathy, Thrombocytopenia, ... Current Diet NPO, Cardiac Diet (from B ). 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 Weight Status Appropriate Subjective/Other Information RD consult for nutrition education assessment. Pt currently on NPO, plans to start PO tomorrow morning. Pt is on Room Air, O2 saturation @ 96%, according to Physical Assessment History notes. Pt still in critical condition , not a candidate for Nutrition Education at the time, will assess feasibility on F/U. Percent of energy/protein needs met: Pt currently on NPO. Prescribed Cardiac Diet provides for energy/protein needs (2,230 Kcal/85 g) during LOS. Nutrition Intervention Follow-Up By: 05/14/22 Additional Comments Nutrition education will be provided at F/U, if feasible. When pertinent, start monitoring food tolerance, %PO intake of meals, and BM.
--- NOTE | 2022-05-08 12:41 | Event Note ---
Date: 05/08/22 The patient was evaluated by the driller and broacher, pacemaker implant has been recommended. Patient will be placed n.p.o., for anticipated pacemaker implant tomorrow morning.
--- NOTE | 2022-05-08 12:52 | Consultation ---
History of Present Illness Consult date: 05/08/22 Consult reason: bradycardia History of present illness: Electrophysiology Consult. 89 YO man who presented to [facility] ED due to worsening fatigue and bradycardia. He was noted to have sinus bradycardia in the 30s in ED. He was initially treated with IV atropine and subsequently placed on IV dopamine. His heart rate has not significantly improved despite ongoing IV dopamine and remains persistently in the 40s. He has not had any episodes of syncope. Pt has h/o dementia according to medical records but was alert and oriented when I spoke with him. ECG on presentation revealed sinus bradycardia at 32 bpm. Echo reveals normal EF of 65-70%. Past History Past Medical History: hypertension, hyperlipidemia Past Surgical History: Other (unobtainable) Social history: other (Unobtainable) Family history: other (Unobtainable) Medications and Allergies Allergies Allergy/AdvReac Type Severity Reaction Status Date / Time No Known Allergies Allergy Verified 05/06/22 18:25 Active Meds: Active Medications Acetaminophen (Acetaminophen 325 Mg Tab) 650 mg PO Q6H PRN PRN Reason: Pain MILD(1-3)/Fever >100.5/AHMADI Famotidine (Famotidine 20 Mg Tab) 20 mg PO QDAY [facility] Last Admin: 05/08/22 10:27 Dose: 20 mg Heparin Sodium (Porcine) (Heparin 5,000 Unit/1 Ml Vial) 5,000 unit SUB-Q Q8HR NAZANIN Last Admin: 05/08/22 05:19 Dose: 5,000 unit Dopamine HCl/Dextrose (Dopamine 800 Mg/D5w 250ml) 800 mg in 250 mls @ 6.804 mls/hr IV DIRECT NAZANIN; Protocol Magnesium Hydroxide (Magnesium Hydroxide (Mom) Oral Liqd Udc) 30 ml PO Q4H PRN PRN Reason: Constipation Morphine Sulfate (Morphine 2 Mg/1 Ml Inj) 2 mg IV Q4H PRN PRN Reason: Pain, Moderate (4-6) Last Admin: 05/07/22 22:14 Dose: 2 mg Ondansetron HCl (Ondansetron 4 Mg/2 Ml Inj) 4 mg IV Q8H PRN PRN Reason: Nausea And Vomiting Sodium Chloride (Sodium Chloride 0.9% 10 Ml Flush Syringe) 10 ml IV BID NAZANIN Last Admin: 05/08/22 10:27 Dose: 10 ml Sodium Chloride (Sodium Chloride 0.9% 10 Ml Flush Syringe) 10 ml IV PRN PRN PRN Reason: LINE FLUSH Review of Systems All systems: negative (per hpi) Physical Examination Vital Signs Temp Pulse Resp BP Pulse Ox 97.8 F 50 L 18 130/62 97 05/06/22 18:23 05/06/22 18:23 05/06/22 18:23 05/06/22 18:23 05/06/22 18:23 General appearance: no acute distress HEENT: Positive: PERRL Neck: Positive: neck supple Cardiac: Positive: Bradycardia Lungs: Positive: clear to auscultation Abdomen: Positive: Unremarkable, Active Bowel Sounds Results 05/08/22 04:10 05/08/22 04:10 CBC 05/08/22 Range/Units 04:10 WBC 12.1 H (4.5-11.0) K/mm3 RBC 5.27 H (3.65-5.03) M/mm3 Hgb 12.4 (11.8-15.2) gm/dl Hct 38.8 (35.5-45.6) % Plt Count 147 (140-440) K/mm3 Lymph # (Auto) 1.2 (1.2-5.4) K/mm3 [place] # (Auto) 1.0 H (0.0-0.8) K/mm3 Eos # (Auto) 0.0 (0.0-0.4) K/mm3 Baso # (Auto) 0.0 (0.0-0.1) K/mm3 Comprehensive Metabolic Panel 05/08/22 Range/Units 04:10 Sodium 137 (137-145) mmol/L Potassium 4.0 (3.6-5.0) mmol/L Chloride 105.1 (98-107) mmol/L Carbon Dioxide 23 (22-30) mmol/L BUN 17 (9-20) mg/dL Creatinine 0.8 (0.8-1.3) mg/dL Glucose 118 H (75-100) mg/dL Calcium 9.5 (8.4-10.2) mg/dL Assessment and Plan Sick Sinus Syndrome with sinus bradycardia in 30s and 40s. Normal thyroid function. Recommend: Dual chamber PPM implant. Extensively discussed with patient and family. They want to proceed. Tentatively, will plan for tomorrow afternoon
--- NOTE | 2022-05-08 16:13 | Progress Note ---
Assessment and Plan Symptomatic Bradycardia on dopamine Hypertension Acute Metabolic Encephalopathy with underlying history of Dementia Mild Thrombocytopenia (POA) Moderate Pulmonary HTN - 2D Echo noted, LVEF 65-70%, with moderate pulmonary HTN RSVP 54 Continue with Dopamine- will discuss with Cardiology. PPM in the morning Supplemental oxygen as needed, keep SpO2 92-94% CT scan of the head was unremarkable. Frequent re-orientation, keep awake during the day, lights on Continue to avoid benzodiazepine to reduce the possibility of delirium PRN Analgesia for pain control Maintenance of sleep-wake cycle Fall precautions VTE prophylaxis- Heparin, monitor for bleeding, trend platelets Updated the daughter and son at the bedside CONDITION: CRITICAL PROGNOSIS; GUARDED CODE STATUS: FULL The high probability of a clinically significant, sudden or life threatening deterioration of the cardiovascular and neurology systemsrequired my full and direct attention, intervention and personal management. The aggregate critical care time was [32] minutes. This time is in addition to time spent performing reported procedures but includes the following: [x] Data Review and interpretation [x] Patient assessment and monitoring of vital signs [x] Documentation [x] Medication orders and management Subjective Date of service: 05/08/22 Interval history: Patient is seen today for: Symptomatic Bradycardia; HTN; Dyslipidemia; AMS; Dementia; Dehydration; Thrombocytopenia Seen and examined at bedside; 24hour events reviewed; nursing and respiratory care staff consulted; no adverse overnight events reported to me; resting peacefully in bed; ; denies N/V/F/C, more awake, alert and appropriate today. Bradycardia persists despite dopamine infusion Plan for PPM in the morning Objective - Exam Narrative Exam: General appearance: Present: no acute distress, elderly, thin - EENT Eyes: Present: PERRL, EOM intact ENT: hearing intact - Neck Neck: Present: normal ROM - Respiratory Respiratory effort: normal Respiratory: bilateral: diminished - Cardiovascular Rhythm: regular, bradycardia Heart Sounds: Present: S1 & S2 EKG- Sinus bradycardia - Extremities Extremities: no ischemia, pulses intact, pulses symmetrical Peripheral Pulses: within normal limits - Abdominal General gastrointestinal: soft, non-distended, normal bowel sounds - Integumentary Integumentary: Present: warm, dry - Psychiatric Psychiatric: appropriate mood/affect, cooperative - Neurologic Neurologic: CNII-XII intact, moves all extremities - Allied Health Allied health notes reviewed: nursing, primary service Vital Signs - 12hr 05/08/22 05/08/22 05/08/22 04:18 04:30 05:00 Pulse Rate 50 L 48 L 44 L Pulse Rate [ From Monitor] Respiratory 16 13 20 Rate Blood Pressure 182/73 156/59 O2 Sat by Pulse 97 100 97 Oximetry 05/08/22 05/08/22 05/08/22 05:30 06:00 06:30 Pulse Rate 39 L 41 L 45 L Pulse Rate [ From Monitor] Respiratory 19 18 17 Rate Blood Pressure 182/73 166/49 166/49 O2 Sat by Pulse 95 98 99 Oximetry 05/08/22 05/08/22 05/08/22 07:00 07:30 08:00 Pulse Rate 44 L 46 L 45 L Pulse Rate [ 45 L From Monitor] Respiratory 19 12 21 Rate Blood Pressure 175/34 175/34 192/70 O2 Sat by Pulse 93 100 98 Oximetry 05/08/22 05/08/22 05/08/22 08:30 09:00 09:30 Pulse Rate 46 L 44 L 46 L Pulse Rate [ From Monitor] Respiratory 11 L 17 13 Rate Blood Pressure 175/34 176/65 176/65 O2 Sat by Pulse 99 99 100 Oximetry 05/08/22 05/08/22 05/08/22 10:00 10:30 11:00 Pulse Rate 39 L 36 L 50 L Pulse Rate [ From Monitor] Respiratory 19 15 22 Rate Blood Pressure 181/59 181/59 197/69 O2 Sat by Pulse 98 100 99 Oximetry 05/08/22 05/08/22 05/08/22 11:30 12:00 12:30 Pulse Rate 42 L 39 L 42 L Pulse Rate [ 39 L From Monitor] Respiratory 15 18 15 Rate Blood Pressure 197/69 179/62 197/69 O2 Sat by Pulse 98 98 99 Oximetry 05/08/22 05/08/22 05/08/22 13:00 13:30 14:00 Pulse Rate 38 L 50 L 44 L Pulse Rate [ From Monitor] Respiratory 17 13 18 Rate Blood Pressure 197/69 142/53 200/78 O2 Sat by Pulse 97 100 100 Oximetry 05/08/22 05/08/22 14:30 15:00 Pulse Rate 45 L 36 L Pulse Rate [ From Monitor] Respiratory 14 20 Rate Blood Pressure 186/69 165/62 O2 Sat by Pulse 99 100 Oximetry CBC and BMP: 05/10/22 03:52 05/10/22 03:52 Abnormal lab findings: Abnormal Labs 05/06/22 05/06/22 05/08/22 20:10 20:10 04:10 WBC 12.1 H RBC 5.46 H 5.27 H MCV 75 L 74 L MCH 23 L 24 L MCHC 31 L Plt Count 138 L Lymph % (Auto) 10.1 L [place] % (Auto) 8.4 H Baso % (Auto) 2.1 H [place] # (Auto) 1.0 H Baso # (Auto) 0.2 H Seg Neutrophils % 81.0 H Seg Neutrophils # 9.8 H BUN 22 H Glucose Albumin 3.8 L 05/08/22 04:10 WBC RBC MCV MCH MCHC Plt Count Lymph % (Auto) [place] % (Auto) Baso % (Auto) [place] # (Auto) Baso # (Auto) Seg Neutrophils % Seg Neutrophils # BUN Glucose 118 H Albumin
[2022-05-08] MEDS ORDERED: hydrALAZINE 20 MG/1 ML INJ IV PRN (17:00)
[2022-05-09 05:18] LABS: Hematocrit 40.2 % (35.5-45.6); Hemoglobin 12.6 gm/dl (11.8-15.2); Mean Corpuscular HGB Conc 31 % (32-34); Mean Corpuscular Volume 74 fl (84-94); Platelet Count 133 K/mm3 (140-440); Red Cell Distribution Width 14.7 % (13.2-15.2)
[2022-05-09 05:29] LABS: INR 1.08 (0.87-1.13)
[2022-05-09 05:30] LABS: Partial Thromboplastin Time 27.8 Sec. (24.2-36.6)
[2022-05-09 05:35] LABS: BUN/Creatinine Ratio 26; Blood Urea Nitrogen 21 mg/dL (9-20); Calcium 9.5 mg/dL (8.4-10.2); Hemolysis Index 7
--- NOTE | 2022-05-09 10:18 | Progress Note ---
<AILYN PEMBERTON - Last Filed: 05/09/22 18:58> Assessment and Plan Assessment and plan: This is a 89-year-old male with known past medical history of HTN and dementia admitted for AMS and symptomatic bradycardia. Hospital Course to Date: 05/07: From review of records it appears that cardiology was consulted from the ED and recommended that dopamine be started on the patient and this was done p atient has maintained a heart rate in the 55's. But continues with a metabolic encephalopathy of unknown source. I have tried to reach out to the family but no one has picked up the phone. We will continue current management we will obtain neurology consultation for the altered mental status we [facility] We will also await the urinalysis that has been ordered. Wean restraints as tolerated. It is unclear to me why the patient was on Lovenox outpatient. However patient has thrombocytopenia hope that the records will shed some light. 05/08: Patient remains in SB on the monitor, HR in the 40s-50s, still on dopamine gtt and hypertensive SBP in the 180s-190s this am. Per EP cardio plan for tentative PPM placement tomorrow. Wean dopanine gtt as tolerated to maintain HR in the 40-50s. Plan of care discussed with patient and his daughter at the bedside. All questions and concerns were addressed at this time. They verbalized understanding and agreed with current care plan. Medical records from the [place] pending. 05/09: Patient remains stable on RA. off Dopamine gtt this am, SB on the monitor, HR in the high 30s-50s, VSS. Plan for dual chamber PPM placement today by EP cardio. Assessment and Plan #Symptomatic Bradycardia #Hypertension #Moderate Pulmonary HTN - Presented with AMS, lightheadedness, and dizziness X2 days - EKG in the ED reveal SB, HR in the 30s - s/p Dopamine gtt - 2D Echo noted, LVEF 65-70%, with moderate pulmonary HTN RSVP 54 - EP Cardio and Cardiology is following - Plan for tentative PPM placement today - NPO after midnight - Continue blood pressure monitor per protocol - Maintain SBP less than 160 - CCM is also following - Remains stable on RA, no respiratory distress noted - Outpatient follow up once more stable with pulmonary and cardio for further workup/eval for pulmonary HTN #Acute Metabolic Encephalopathy-resolved #Underlying history of Dementia - Probably secondary to above - CT scan of the head was unremarkable. - Mentation with significant improvement, fully AAO - Periods of agitation and increase agitation at night, possible sundowning - Frequent reorientation - Avoid benzodiazepine to reduce the possibility of delirium - PRN Analgesia for pain control - Maintenance of sleep-wake cycle - Fall precaution - Neurology is also following #Thrombocytopenia (POA) - Present on admit - H&H stable, no s/s of any active bleeding - On VTE proph - Continue to trend CBC - Transfuse for Hgb less than 7 - [facility] #GI/DVT Prophylaxis - PPI- Pepcid - Heparin SubQ - SCDs to bilateral lower extremities while in bed #Advance Care Planning - Disease education data, care plan, diagnoses, and prognosis were discussed with the patient and her daughter at the bedside. Patient is a FULL code. They acknowledged understanding and agreed with current care plan. The high probability of a clinically significant, sudden or life threatening deterioration of the [multiple] system(s) required my full and direct attention, intervention and personal management. The aggregate critical care time was [60] minutes. This time is in addition to time spent performing reported procedures but includes the following: [x] Data Review and interpretation [x] Patient assessment and monitoring of vital signs [x] Documentation [x] Medication orders and management Disposition Plan: ICU Total Time Spent with Patient (Minutes): 60 History Interval history: Patient seen and examined at the bedside. Remains stable on RA, fully AAO, with no complaints and no respiratory distress noted. Dopamine gtt is off this am, SB on the monitor, HR in the high 30s-50s, VSS. Patient has been NPO since after midnight for possible procedure this am. RUTH overnight Hospitalist Physical - Physical exam Narrative exam: General appearance: Present: no acute distress, cachectic - EENT Eyes: Present: PERRL, EOM intact ENT: hearing intact - Neck Neck: Present: normal ROM - Respiratory Respiratory effort: normal Respiratory: bilateral: diminished - Cardiovascular Rhythm: regular Heart Sounds: Present: S1 & S2 - Extremities Extremities: no ischemia, pulses intact, pulses symmetrical Peripheral Pulses: within normal limits - Abdominal General gastrointestinal: soft, non-distended, normal bowel sounds - Integumentary Integumentary: Present: warm, dry - Psychiatric Psychiatric: appropriate mood/affect, cooperative - Neurologic Neurologic: CNII-XII intact, moves all extremities - Allied Health Allied health notes reviewed: nursing, case management - Constitutional Vitals: Temp Pulse Resp BP Pulse Ox 98.5 F 41 L 23 176/58 97 05/09/22 08:00 05/09/22 09:00 05/09/22 09:00 05/09/22 09:00 05/09/22 09:00 HEART Score - HEART Score Troponin: Troponin T < 0.010 ng/mL (0.00-0.029) 05/06/22 20:10 Results - Labs CBC & Chem 7: 05/09/22 04:27 05/09/22 04:27 Labs: Laboratory Last Values WBC 12.4 K/mm3 (4.5-11.0) H 05/09/22 04:27 RBC 5.40 M/mm3 (3.65-5.03) H 05/09/22 04:27 Hgb 12.6 gm/dl (11.8-15.2) 05/09/22 04:27 Hct 40.2 % (35.5-45.6) 05/09/22 04:27 MCV 74 fl (84-94) L 05/09/22 04:27 MCH 23 pg (28-32) L 05/09/22 04:27 MCHC 31 % (32-34) L 05/09/22 04:27 RDW 14.7 % (13.2-15.2) 05/09/22 04:27 Plt Count 133 K/mm3 (140-440) L 05/09/22 04:27 Lymph % (Auto) 10.1 % (13.4-35.0) L 05/08/22 04:10 Mobile % (Auto) 8.4 % (0.0-7.3) H 05/08/22 04:10 Eos % (Auto) 0.1 % (0.0-4.3) 05/08/22 04:10 Baso % (Auto) 0.4 % (0.0-1.8) 05/08/22 04:10 Lymph # (Auto) 1.2 K/mm3 (1.2-5.4) 05/08/22 04:10 [place] # (Auto) 1.0 K/mm3 (0.0-0.8) H 05/08/22 04:10 Eos # (Auto) 0.0 K/mm3 (0.0-0.4) 05/08/22 04:10 Baso # (Auto) 0.0 K/mm3 (0.0-0.1) 05/08/22 04:10 Seg Neutrophils % 81.0 % (40.0-70.0) H 05/08/22 04:10 Seg Neutrophils # 9.8 K/mm3 (1.8-7.7) H 05/08/22 04:10 PT 15.2 Sec. (12.2-14.9) H 05/09/22 04:27 INR 1.08 (0.87-1.13) 05/09/22 04:27 APTT 27.8 Sec. (24.2-36.6) 05/09/22 04:27 Sodium 140 mmol/L (137-145) 05/09/22 04:27 Potassium 4.1 mmol/L (3.6-5.0) 05/09/22 04:27 Chloride 103.7 mmol/L (98-107) 05/09/22 04:27 Carbon Dioxide 25 mmol/L (22-30) 05/09/22 04:27 Anion Gap 15 mmol/L 05/09/22 04:27 BUN 21 mg/dL (9-20) H 05/09/22 04:27 Creatinine 0.8 mg/dL (0.8-1.3) 05/09/22 04:27 Estimated GFR > 60 ml/min 05/09/22 04:27 BUN/Creatinine Ratio 26 % 05/09/22 04:27 Glucose 102 mg/dL (75-100) H 05/09/22 04:27 Calcium 9.5 mg/dL (8.4-10.2) 05/09/22 04:27 Phosphorus 2.70 mg/dL (2.5-4.5) 05/09/22 04:27 Magnesium 2.20 mg/dL (1.7-2.3) 05/09/22 04:27 Total Bilirubin 0.80 mg/dL (0.1-1.2) 05/06/22 20:10 AST 14 units/L (5-40) 05/06/22 20:10 ALT 11 units/L (7-56) 05/06/22 20:10 Alkaline Phosphatase 75 units/L (35-129) 05/06/22 20:10 Troponin T < 0.010 ng/mL (0.00-0.029) 05/06/22 20:10 NT-Pro-B Natriuret Pep 322.6 pg/mL (0-900) 05/06/22 20:10 Total Protein 8.1 g/dL (6.3-8.2) 05/06/22 20:10 Albumin 3.8 g/dL (3.9-5) L 05/06/22 20:10 Albumin/Globulin Ratio 0.9 % 05/06/22 20:10 TSH 1.880 mlU/mL (0.270-4.200) 05/06/22 20:10 Free T4 0.98 ng/dL (0.76-1.46) 05/06/22 20:10 Steward/IV: Voiding Method Urinal Active Medications - Current Medications Current Medications: Generic Name Dose Route Start Last Admin Trade Name Freq PRN Reason Stop Dose Admin Acetaminophen 650 mg 05/06/22 23:57 Acetaminophen 325 Mg Tab PO Q6H PRN Pain MILD(1-3)/Fever >100.5/AHMADI Famotidine 20 mg 05/08/22 10:00 05/08/22 10:27 Famotidine 20 Mg Tab PO 20 mg QDAY NAZANIN Administration Heparin Sodium (Porcine) 5,000 unit 05/07/22 06:00 05/08/22 21:19 Heparin 5,000 Unit/1 Ml Vial SUB-Q 5,000 unit Q8HR NAZANNI Administration Hydralazine HCl 10 mg 05/08/22 17:00 Hydralazine 20 Mg/1 Ml Inj IV Q4H PRN Hypertension Dopamine HCl/Dextrose 800 mg in 250 mls @ 6.804 mls/hr 05/08/22 09:00 05/08/22 15:15 Dopamine 800 Mg/D5w 250ml IV 2 mcg/kg/min DIRECT NAZANNI 2.722 mls/hr Administration Protocol 5 MCG/KG/MIN Magnesium Hydroxide 30 ml 05/06/22 23:57 Magnesium Hydroxide (Mom) Oral Liqd Udc PO Q4H PRN Constipation Morphine Sulfate 2 mg 05/06/22 23:57 05/07/22 22:14 Morphine 2 Mg/1 Ml Inj IV 2 mg Q4H PRN Administration Pain, Moderate (4-6) Ondansetron HCl 4 mg 05/06/22 23:57 Ondansetron 4 Mg/2 Ml Inj IV Q8H PRN Nausea And Vomiting Sodium Chloride 10 ml 05/07/22 10:00 05/08/22 22:49 Sodium Chloride 0.9% 10 Ml Flush Syringe IV 10 ml BID NAZANIN Administration Sodium Chloride 10 ml 05/06/22 23:57 Sodium Chloride 0.9% 10 Ml Flush Syringe IV PRN PRN LINE FLUSH Nutrition/Malnutrition Assess - Dietary Evaluation Nutrition/Malnutrition Findings: Nutrition Notes Start: 05/07/22 14:12 Freq: Status: Active Protocol: Document 05/07/22 14:12 CL (Rec: 05/07/22 14:23 CL [email or web address]) Nutrition Notes Need for Assessment generated from: MD Order,Education Initial or Follow up Brief Note Current Diagnosis Hypertension,Hyperlipidemia Other Pertinent Diagnosis Bradycardia, Dehydration, Metabolic Encephalopathy, Thrombocytopenia, ... Current Diet NPO, Cardiac Diet (from B ). Height 6 ft Weight 72.5 kg [place] Body Weight (kg) 80.90 BMI 21.7 Intake Prior to Admission Good Weight change and time frame Pt denies having loss body weight [employer]. Weight Status Appropriate Subjective/Other Information RD consult for nutrition education assessment. Pt currently on NPO, plans to start PO tomorrow morning. Pt is on Room Air, O2 saturation @ 96%, according to Physical Assessment History notes. Pt still in critical condition , not a candidate for Nutrition Education at the time, will assess feasibility on F/U. Percent of energy/protein needs met: Pt currently on NPO. Prescribed Cardiac Diet provides for energy/protein needs (2,230 Kcal/85 g) during LOS. Nutrition Intervention Follow-Up By: 05/14/22 Additional Comments Nutrition education will be provided at F/U, if feasible. When pertinent, start monitoring food tolerance, %PO intake of meals, and BM. <RATNA TINOCO - Last Filed: 05/09/22 19:45> Assessment and Plan Assessment and plan: I saw and evaluated the patient. I agree with the findings and the plan of care as documented in the Nurse Practitioner's~note, with the following corrections and additions. Hospitalist Physical - Constitutional Vitals: Temp Pulse Resp BP Pulse Ox 97.6 F 60 18 165/71 100 05/09/22 19:30 05/09/22 19:00 05/09/22 19:00 05/09/22 19:00 05/09/22 19:00 HEART Score - HEART Score Troponin: Troponin T < 0.010 ng/mL (0.00-0.029) 05/06/22 20:10 Results - Labs CBC & Chem 7: 05/09/22 04:27 05/09/22 04:27 Labs: Laboratory Last Values WBC 12.4 K/mm3 (4.5-11.0) H 05/09/22 04:27 RBC 5.40 M/mm3 (3.65-5.03) H 05/09/22 04:27 Hgb 12.6 gm/dl (11.8-15.2) 05/09/22 04:27 Hct 40.2 % (35.5-45.6) 05/09/22 04:27 MCV 74 fl (84-94) L 05/09/22 04:27 MCH 23 pg (28-32) L 05/09/22 04:27 MCHC 31 % (32-34) L 05/09/22 04:27 RDW 14.7 % (13.2-15.2) 05/09/22 04:27 Plt Count 133 K/mm3 (140-440) L 05/09/22 04:27 Lymph % (Auto) 10.1 % (13.4-35.0) L 05/08/22 04:10 Mobile % (Auto) 8.4 % (0.0-7.3) H 05/08/22 04:10 Eos % (Auto) 0.1 % (0.0-4.3) 05/08/22 04:10 Baso % (Auto) 0.4 % (0.0-1.8) 05/08/22 04:10 Lymph # (Auto) 1.2 K/mm3 (1.2-5.4) 05/08/22 04:10 [place] # (Auto) 1.0 K/mm3 (0.0-0.8) H 05/08/22 04:10 Eos # (Auto) 0.0 K/mm3 (0.0-0.4) 05/08/22 04:10 Baso # (Auto) 0.0 K/mm3 (0.0-0.1) 05/08/22 04:10 Seg Neutrophils % 81.0 % (40.0-70.0) H 05/08/22 04:10 Seg Neutrophils # 9.8 K/mm3 (1.8-7.7) H 05/08/22 04:10 PT 15.2 Sec. (12.2-14.9) H 05/09/22 04:27 INR 1.08 (0.87-1.13) 05/09/22 04:27 APTT 27.8 Sec. (24.2-36.6) 05/09/22 04:27 Sodium 140 mmol/L (137-145) 05/09/22 04:27 Potassium 4.1 mmol/L (3.6-5.0) 05/09/22 04:27 Chloride 103.7 mmol/L (98-107) 05/09/22 04:27 Carbon Dioxide 25 mmol/L (22-30) 05/09/22 04:27 Anion Gap 15 mmol/L 05/09/22 04:27 BUN 21 mg/dL (9-20) H 05/09/22 04:27 Creatinine 0.8 mg/dL (0.8-1.3) 05/09/22 04:27 Estimated GFR > 60 ml/min 05/09/22 04:27 BUN/Creatinine Ratio 26 % 05/09/22 04:27 Glucose 102 mg/dL (75-100) H 05/09/22 04:27 Calcium 9.5 mg/dL (8.4-10.2) 05/09/22 04:27 Phosphorus 2.70 mg/dL (2.5-4.5) 05/09/22 04:27 Magnesium 2.20 mg/dL (1.7-2.3) 05/09/22 04:27 Total Bilirubin 0.80 mg/dL (0.1-1.2) 05/06/22 20:10 AST 14 units/L (5-40) 05/06/22 20:10 ALT 11 units/L (7-56) 05/06/22 20:10 Alkaline Phosphatase 75 units/L (35-129) 05/06/22 20:10 Troponin T < 0.010 ng/mL (0.00-0.029) 05/06/22 20:10 NT-Pro-B Natriuret Pep 322.6 pg/mL (0-900) 05/06/22 20:10 Total Protein 8.1 g/dL (6.3-8.2) 05/06/22 20:10 Albumin 3.8 g/dL (3.9-5) L 05/06/22 20:10 Albumin/Globulin Ratio 0.9 % 05/06/22 20:10 TSH 1.880 mlU/mL (0.270-4.200) 05/06/22 20:10 Free T4 0.98 ng/dL (0.76-1.46) 05/06/22 20:10 Steward/IV: Voiding Method Urinal Active Medications - Current Medications Current Medications: Generic Name Dose Route Start Last Admin Trade Name Freq PRN Reason Stop Dose Admin Acetaminophen 650 mg 05/06/22 23:57 Acetaminophen 325 Mg Tab PO Q6H PRN Pain MILD(1-3)/Fever >100.5/AHMADI Famotidine 20 mg 05/08/22 10:00 05/09/22 16:47 Famotidine 20 Mg Tab PO Not Given QDAY NAZANIN Heparin Sodium (Porcine) 5,000 unit 05/07/22 06:00 05/09/22 16:46 Heparin 5,000 Unit/1 Ml Vial SUB-Q Not Given Q8HR NAZANIN Hydralazine HCl 10 mg 05/08/22 17:00 Hydralazine 20 Mg/1 Ml Inj IV Q4H PRN Hypertension Dopamine HCl/Dextrose 800 mg in 250 mls @ 6.804 mls/hr 05/08/22 09:00 05/08/22 15:15 Dopamine 800 Mg/D5w 250ml IV 2 mcg/kg/min DIRECT NAZANIN 2.722 mls/hr Administration Protocol 5 MCG/KG/MIN Magnesium Hydroxide 30 ml 05/06/22 23:57 Magnesium Hydroxide (Mom) Oral Liqd Udc PO Q4H PRN Constipation Morphine Sulfate 2 mg 05/06/22 23:57 05/07/22 22:14 Morphine 2 Mg/1 Ml Inj IV 2 mg Q4H PRN Administration Pain, Moderate (4-6) Ondansetron HCl 4 mg 05/06/22 23:57 Ondansetron 4 Mg/2 Ml Inj IV Q8H PRN Nausea And Vomiting Oxycodone/Acetaminophen 1 tab 05/09/22 15:35 Oxycodone /Acetaminophen 5-325mg Tab PO Q6H PRN Pain, Moderate (4-6) Sodium Chloride 10 ml 05/07/22 10:00 05/09/22 10:47 Sodium Chloride 0.9% 10 Ml Flush Syringe IV 10 ml BID NAZANIN Administration Sodium Chloride 10 ml 05/06/22 23:57 Sodium Chloride 0.9% 10 Ml Flush Syringe IV PRN PRN LINE FLUSH Nutrition/Malnutrition Assess - Dietary Evaluation Nutrition/Malnutrition Findings: Nutrition Notes Start: 05/07/22 14:12 Freq: Status: Active Protocol: Document 05/07/22 14:12 CL (Rec: 05/07/22 14:23 CL [id number]) Nutrition Notes Need for Assessment generated from: MD Order,Education Initial or Follow up Brief Note Current Diagnosis Hypertension,Hyperlipidemia Other Pertinent Diagnosis Bradycardia, Dehydration, Metabolic Encephalopathy, Thrombocytopenia, ... Current Diet NPO, Cardiac Diet (from B ). Height 6 ft Weight 72.5 kg [place] Body Weight (kg) 80.90 BMI 21.7 Intake Prior to Admission Good Weight change and time frame Pt denies having loss body weight [employer]. Weight Status Appropriate Subjective/Other Information RD consult for nutrition education assessment. Pt currently on NPO, plans to start PO tomorrow morning. Pt is on Room Air, O2 saturation @ 96%, according to Physical Assessment History notes. Pt still in critical condition , not a candidate for Nutrition Education at the time, will assess feasibility on F/U. Percent of energy/protein needs met: Pt currently on NPO. Prescribed Cardiac Diet provides for energy/protein needs (2,230 Kcal/85 g) during LOS. Nutrition Intervention Follow-Up By: 05/14/22 Additional Comments Nutrition education will be provided at F/U, if feasible. When pertinent, start monitoring food tolerance, %PO intake of meals, and BM.
[2022-05-09] MEDS ORDERED: MIDAZOLAM 2 MG/2 ML INJ ONE (11:41)
[2022-05-09] MEDS ORDERED: KETAMINE/STERILE WATER 50 MG/ML SYRINGE ONE (11:42)
[2022-05-09] MEDS ORDERED: ePHEDrine SULFATE 50 MG/1 ML INJ ONE (11:42)
[2022-05-09] MEDS ORDERED: fentaNYL 100 MCG/2 ML INJ ONE (12:19)
--- NOTE | 2022-05-09 12:29 | Progress Note ---
Assessment and Plan Symptomatic Bradycardia Hypertension Dyslipidemia Acute on chronic metabolic encephalopathy with underlying history of dementia notable change in status- Dehydration Thrombocytopenia - procedd with PPM placement - follow post-procedure CXR - complete ACS w/up per cardiology team - continue accuchecks with glycemic control per SSI (While critically ill target blood glucose of 140-180 mg/dL; avoid hypoglycemia) - supplemental oxygen for target O2 sat's > 90% acutely - aspiration precautions - prn bronchodilators with pulmonary hygiene per RT - avoid nephrotoxins, renally dose all medications - avoid benzodiazepine's, reduce the possibility of delirium - AB's per ID rec's - prn analgesia per pain score - Maintenance of sleep-wake cycle, avoid delirium - G.I. & VTE prophylaxis - PT/OT/ROM exercises - continue mobility protocols for pressure ulcer prophylaxis - Monitor hemodynamics closely - continue other care per attending / other consultants - discharge planning ongoing concurrently .... Re-evaluate in am & prn CONDITION: CRITICAL PROGNOSIS: GUARDED CODE STATUS: FULL CODE The high probability of a clinically significant, sudden or life-threatening deterioration of the [respiratory & cardiovascular] system(s) required my full and direct attention, intervention and personal management. The aggregate cr itical care time was [31] minutes without overlap. Time includes spent on; [x] Data Review and interpretation [x] Patient assessment and monitoring of vital signs [x] Documentation [x] Medication orders and management Subjective Date of service: 05/09/22 Principal diagnosis: Symptomatic Bradycardia; HTN; AMS; Dementia; Thrombocytopenia Interval history: Patient is seen today for: Symptomatic Bradycardia; HTN; Dyslipidemia; AMS; Dementia; Dehydration; Thrombocytopenia Seen and examined at bedside; 24hour events reviewed; nursing and respiratory care staff consulted; no adverse overnight events reported to me; resting peacefully in bed; to slab installer this am for PPM placement; denies N/V/F/C Objective Vital Signs - 12hr 05/09/22 05/09/22 05/09/22 01:00 02:00 03:00 Temperature Pulse Rate 37 L 39 L 46 L Pulse Rate [ From Monitor] Respiratory 16 22 16 Rate Blood Pressure 125/61 125/61 176/60 O2 Sat by Pulse 98 98 97 Oximetry 05/09/22 05/09/22 05/09/22 04:00 05:00 05:45 Temperature 98.3 F Pulse Rate 38 L 35 L Pulse Rate [ From Monitor] Respiratory 14 15 Rate Blood Pressure 176/60 176/60 O2 Sat by Pulse 98 98 Oximetry 05/09/22 05/09/22 05/09/22 06:00 07:00 08:00 Temperature 98.5 F Pulse Rate 39 L 39 L 48 L Pulse Rate [ 48 L From Monitor] Respiratory 18 12 18 Rate Blood Pressure 146/50 148/59 176/58 O2 Sat by Pulse 99 100 95 Oximetry 05/09/22 09:00 Temperature Pulse Rate 41 L Pulse Rate [ From Monitor] Respiratory 23 Rate Blood Pressure 176/58 O2 Sat by Pulse 97 Oximetry Constitutional: no acute distress Eyes: non-icteric ENT: oropharynx moist Neck: supple, no lymphadenopathy, no JVD Effort: normal Ascultation: Bilateral: clear Percussion: Bilateral: not dull Cardiovascular: regular rate and rhythm, other (paced) Gastrointestinal: normoactive bowel sounds, soft, non-tender, non-distended Integumentary: normal Extremities: no cyanosis, no edema, pulses normal, no ischemia or petechiae Neurologic: non-focal exam, pupils equal and round, CN II-XII normal, motor strength normal and Psychiatric: mood appropriate, affect normal CBC and BMP: 05/10/22 03:52 05/10/22 03:52 ABG, PT/INR, D-dimer: PT/INR, D-dimer PT 15.2 Sec. (12.2-14.9) H 05/09/22 04:27 INR 1.08 (0.87-1.13) 05/09/22 04:27 Abnormal lab findings: Abnormal Labs 05/06/22 05/06/22 05/08/22 20:10 20:10 04:10 WBC 12.1 H RBC 5.46 H 5.27 H MCV 75 L 74 L MCH 23 L 24 L MCHC 31 L Plt Count 138 L Lymph % (Auto) 10.1 L [place] % (Auto) 8.4 H Baso % (Auto) 2.1 H [place] # (Auto) 1.0 H Baso # (Auto) 0.2 H Seg Neutrophils % 81.0 H Seg Neutrophils # 9.8 H PT BUN 22 H Glucose Albumin 3.8 L 05/08/22 05/09/22 05/09/22 04:10 04:27 04:27 WBC 12.4 H RBC 5.40 H MCV 74 L MCH 23 L MCHC 31 L Plt Count 133 L Lymph % (Auto) [place] % (Auto) Baso % (Auto) [place] # (Auto) Baso # (Auto) Seg Neutrophils % Seg Neutrophils # PT BUN 21 H Glucose 118 H 102 H Albumin 05/09/22 04:27 WBC RBC MCV MCH MCHC Plt Count Lymph % (Auto) [place] % (Auto) Baso % (Auto) [place] # (Auto) Baso # (Auto) Seg Neutrophils % Seg Neutrophils # PT 15.2 H BUN Glucose Albumin Chest x-ray: pending Allied health notes reviewed: nursing
[2022-05-09] MEDS ORDERED: ceFAZolin/Water 2 GM/20 ML 2 GM/20 ML SYRINGE IV ONE (12:40)
[2022-05-09] MEDS ORDERED: LIDOCAINE (2%) 20 MG/1 ML VIAL 20 ML MDV INFILTRATI ONE (12:40)
[2022-05-09] MEDS ORDERED: BUPIVACAINE/PF (0.5%) 5 MG/1 ML 10 ML VIAL INFILTRATI ONE ×2 (12:40→12:58)
[2022-05-09] MEDS ORDERED: SODIUM CHLORIDE IRRI 1000 ML 1,000 ML, .VANCOMYCIN VIAL 1,000 MG IR ONE (12:54)
[2022-05-09] MEDS ORDERED: SODIUM CHLORIDE IRRI 500 ML 500 ML IR ONE (12:54)
--- NOTE | 2022-05-09 12:59 | Anesthesia Consultation ---
Anesthesia Consult and Med Hx Date of service: 05/09/22 - Airway Anesthetic Teeth Evaluation: Edentulous ROM Head & Neck: Adequate Mental/Hyoid Distance: Adequate Mallampati Class: Class III Intubation Access Assessment: Possibly Difficult - Pre-Operative Health Status ASA Pre-Surgery Classification: ASA4 Proposed Anesthetic Plan: MAC - Pulmonary Hx Respiratory Symptoms: No - Cardiovascular System Hx Hypertension: No Hx Cardia Arrhythmia: Yes (SSS; on dopamine gtt for bradycardia) - Central Nervous System Hx Psychiatric Problems: Yes (hx dementia and current encephalopathy/AMS this admission) - Endocrine Hx Renal Disease: No Hx Liver Disease: No Hx Insulin Dependent Diabetes: No Hx Non-Insulin Dependent Diabetes: No Hx Thyroid Disease: No - Hematic Hx Anemia: No (thrombocytopenia) - Additional Comments Anesthesia Medical History Comments: Daughter Renee [place] provided medical hx and gave consent for anesthesia via telephone.
[2022-05-09] MEDS ORDERED: SODIUM CHLORIDE 0.9% 1000 ML 1,000 ML ONE (13:56)
--- NOTE | 2022-05-09 14:26 | Anesthesia Day of Surgery ---
Anesthesia Day of Surgery - Day of Surgery Patient Examined: Yes Patient H&P Reviewed: Yes Patient is NPO: Yes
--- NOTE | 2022-05-09 15:29 | Event Note ---
Date: 05/09/22 Pt underwent dual chamber PPM implant without apparent complications. Routine post operative orders placed. Will arrange for PPM interrogation tomorrow. Reasonable to discharge from EP perspective tomorrow if otherwise stable. Sachin Ernst MD
[2022-05-09] MEDS ORDERED: oxyCODONE /ACETAMINOPHEN 5-325MG TAB PO PRN (15:35)
--- NOTE | 2022-05-09 15:35 | Operative Report ---
Operative Report Operative Report: Implant of dual chamber pacemaker PATIENT NAME: Arnol London : 1930 MR#: [id number] DATE OF PROCEDURE: 05/09/22 HOSPITAL: [facility] HAND LINE: Sachin Ernst M.D. History: 89 year old male with sick sinus syndrome Pre Operative Diagnosis: sick sinus syndrome Post Operative Diagnosis: sick sinus syndrome COMPLICATIONS: None PROCEDURE: The risks, benefits, and alternatives were explained to the patient. The patient was prepped and draped in standard fashion for implantable pacemaker insertion following sterile preparation of the left pectoral region. Local anesthesia was obtained by infiltration with 1% Lidocaine. A 4 cm incision was made in the infra-clavicular region.. At that point further dissection was carried out by blunt dissection and electro-cautery. A pocket was created. The cephalic vein was cannulated using cut down technique. Using a peel away introducer, the ventricular lead was advanced to the RV and positioned to the apex. The helix was extended and endocardial measurements were made. Using a second peel away introducer in the cephalic vein, the atrial lead was advanced to the level of the right atrial appendage. The helix was extended and endocardial measurements were made. After the attainment of acceptable endocardial values, both leads were sutured over their suture sleeves to the underlying tissue. Inspection was performed to rule out any bleeding. The pocket was irrigated with antibiotic solution. The pulse generator was then connected to the leads and the setscrews tightened appropriately. The pulse generator was placed in the newly formed pocket and connections were verified. The wound was closed using 2-0, 3-0, and 4-0 Vicryl. A clean sterile dressing was placed over the wound. The patient was returned to the room in stable condition without complication or sequelae. FINDINGS: The following endocardial parameters were obtained: Manager Health Model# Serial # Sensing Threshold Impedance RA Medtronic 5076 [id number] 1.2mV 0.5V @ 0.4ms 627ohms RV Medtronic 5076 [id number] 16.7mV 0.5V @ 0.4ms 722ohms PROGRAMMING: The implanted Medtronic generator (Model # [place] [address], Serial # [id number]) was programmed: Mode Lower Rate Maximum Rate AV/PV delay DDDR 60 bpm 130 bpm 260 msec/ 240 msec Pulse Amplitude Pulse Width Sensitivity RA 3.5Volts 0.4msec Automatic RV 3.5Volts 0.4msec Automatic CONCLUSIONS: Successful Dual Chamber Pacemaker Implant Estimated Blood Loss: <10 cc PLAN: Routine post op orders, CXR, F/u as OP, Enroll in remote monitoring Sachin Ernst M.D. cc: [place] [address]
--- NOTE | 2022-05-09 16:10 | Post Anesthesia Evaluation ---
- Post Anesthesia Evaluation Patient Participated: Yes (Awake, alert, disoriented (baseline)) Airway Patent: Yes Stable Respiratory Function: Yes Nausea/Vomiting: No Temp > 96.8F: Yes Pain Manageable: Yes Adequeate Hydration: Yes Anesthesia Complications: No Other Comments: Transported to ICU by AA and IR RN with VS monitored, spontanous respirations on RA.
[2022-05-09] MEDS: HEPARIN 5,000 UNIT/1 ML VIAL SUB-Q SCH ×2 (16:46→21:07)
[2022-05-09] MEDS: FAMOTIDINE 20 MG TAB PO SCH (16:47)
--- NOTE | 2022-05-09 17:08 | XRay Report ---
CHEST 1 VIEW 05/09/2022 3:17 PM INDICATION / CLINICAL INFORMATION: Pacemaker Postop. COMPARISON: 05/06/2022 FINDINGS: SUPPORT DEVICES: Interval placement of a left pectoral transvenous pacemaker with dual leads in expec antione position. HEART / MEDIASTINUM: The cardiac silhouette appears enlarged, but this may be accentuated by AP techn ique. LUNGS / PLEURA: No significant pulmonary or pleural abnormality. No pneumothorax. ADDITIONAL FINDINGS: None IMPRESSION: 1. Interval placement of a left pectoral transvenous pacemaker with dual leads in expected position. No pneumothorax or other acute chest process. Signer Name: Joe Ledesma MD Signed: 05/09/2022 5:03 PM Workstation Name: [email or web address]
[2022-05-10 05:03] LABS: Basophils % (Auto) 0.3 % (0.0-1.8); Eosinophils # (Auto) 0.4 K/mm3 (0.0-0.4); Eosinophils % (Auto) 4.1 % (0.0-4.3); Hematocrit 41.7 % (35.5-45.6); Lymphocytes # (Auto) 1.2 K/mm3 (1.2-5.4); Lymphocytes % (Auto) 12.8 % (13.4-35.0); Mean Corpuscular HGB Conc 31 % (32-34); Mean Corpuscular Volume 74 fl (84-94); Monocytes # (Auto) 0.8 K/mm3 (0.0-0.8); Monocytes % (Auto) 8.3 % (0.0-7.3); Platelet Count 124 K/mm3 (140-440); Red Blood Count 5.62 M/mm3 (3.65-5.03); Red Cell Distribution Width 14.6 % (13.2-15.2)
[2022-05-10 05:42] LABS: Alanine Aminotransferase 9 units/L (7-56); Albumin 3.5 g/dL (3.9-5); BUN/Creatinine Ratio 31; Blood Urea Nitrogen 28 mg/dL (9-20); Calcium 9.6 mg/dL (8.4-10.2); Hemolysis Index 36
[2022-05-10] MEDS: HEPARIN 5,000 UNIT/1 ML VIAL SUB-Q SCH (06:27)
[2022-05-10] MEDS: FAMOTIDINE 20 MG TAB PO SCH (09:46)
[2022-05-10] MEDS ORDERED: amLODIPine 5 MG TAB PO SCH (10:00)
[2022-05-10] MEDS ORDERED: DOCUSATE SODIUM 100 MG CAP PO SCH (10:00)
--- NOTE | 2022-05-10 12:13 | Progress Note ---
Assessment and Plan Symptomatic Bradycardia Hypertension Dyslipidemia Acute on chronic metabolic encephalopathy with underlying history of dementia notable change in status- Dehydration Thrombocytopenia - post-procedure CXR without pneumothorax - increase ambulation, PT/OT as tolerated - continue care as below otherwise; - complete ACS w/up per cardiology team - continue accuchecks with glycemic control per SSI for target blood glucose of <180 mg/dL; avoid hypoglycemia - supplemental oxygen for target O2 sat's > 90% acutely - aspiration precautions - prn bronchodilators with pulmonary hygiene per RT - avoid nephrotoxins, renally dose all medications - avoid benzodiazepine's, reduce the possibility of delirium - prn analgesia per pain score - Maintenance of sleep-wake cycle, avoid delirium - G.I. & VTE prophylaxis - PT/OT/ROM exercises - continue mobility protocols for pressure ulcer prophylaxis - Monitor hemodynamics closely - continue other care per attending / other consultants - discharge planning ongoing concurrently .... ok to transfer out of ICU .... Re-evaluate in am & prn Subjective Date of service: 05/10/22 Principal diagnosis: Symptomatic Bradycardia; HTN; AMS; Dementia; Thrombocytopenia Interval history: Patient is seen today for: Symptomatic Bradycardia; HTN; Dyslipidemia; AMS; Dementia; Dehydration; Thrombocytopenia Seen and examined at bedside; 24hour events reviewed; nursing and respiratory care staff consulted; no adverse overnight events reported to me; resting peacefully in bed;s/p PPM placement; denies chest pain or palpitations; denies N/V/F/C Objective Vital Signs - 12hr 05/10/22 05/10/22 05/10/22 01:00 02:00 03:00 Temperature 98.2 F Pulse Rate 60 60 60 Respiratory 16 19 18 Rate Blood Pressure 137/58 175/68 140/69 O2 Sat by Pulse 98 98 98 Oximetry 05/10/22 05/10/22 05/10/22 04:00 05:00 06:00 Temperature Pulse Rate 60 60 60 Respiratory 16 16 16 Rate Blood Pressure 148/75 147/67 157/75 O2 Sat by Pulse 98 98 99 Oximetry 05/10/22 05/10/22 05/10/22 07:00 08:00 09:00 Temperature Pulse Rate 60 60 60 Respiratory 16 16 15 Rate Blood Pressure 144/64 160/67 176/72 O2 Sat by Pulse 99 96 100 Oximetry 05/10/22 05/10/22 05/10/22 09:46 10:00 11:00 Temperature 98.1 F Pulse Rate 60 60 60 Respiratory 22 14 Rate Blood Pressure 176/72 146/76 147/66 O2 Sat by Pulse 99 98 Oximetry Constitutional: no acute distress Eyes: non-icteric ENT: oropharynx moist Neck: supple, no lymphadenopathy, no JVD Effort: normal Ascultation: Bilateral: clear Percussion: Bilateral: not dull Cardiovascular: regular rate and rhythm, other (paced) Gastrointestinal: normoactive bowel sounds, soft, non-tender, non-distended Integumentary: normal, other (clean post PPM incision site) Extremities: no cyanosis, no edema, pulses normal, no ischemia or petechiae Neurologic: non-focal exam, pupils equal and round, CN II-XII normal, motor strength normal and Psychiatric: mood appropriate, affect normal CBC and BMP: 05/10/22 03:52 05/10/22 03:52 ABG, PT/INR, D-dimer: PT/INR, D-dimer PT 15.2 Sec. (12.2-14.9) H 05/09/22 04:27 INR 1.08 (0.87-1.13) 05/09/22 04:27 Abnormal lab findings: Abnormal Labs 05/06/22 05/06/22 05/08/22 20:10 20:10 04:10 WBC 12.1 H RBC 5.46 H 5.27 H MCV 75 L 74 L MCH 23 L 24 L MCHC 31 L Plt Count 138 L Lymph % (Auto) 10.1 L [place] % (Auto) 8.4 H Baso % (Auto) 2.1 H [place] # (Auto) 1.0 H Baso # (Auto) 0.2 H Seg Neutrophils % 81.0 H Seg Neutrophils # 9.8 H PT BUN 22 H Glucose Total Bilirubin Albumin 3.8 L 05/08/22 05/09/22 05/09/22 04:10 04:27 04:27 WBC 12.4 H RBC 5.40 H MCV 74 L MCH 23 L MCHC 31 L Plt Count 133 L Lymph % (Auto) [place] % (Auto) Baso % (Auto) [place] # (Auto) Baso # (Auto) Seg Neutrophils % Seg Neutrophils # PT BUN 21 H Glucose 118 H 102 H Total Bilirubin Albumin 05/09/22 05/10/22 05/10/22 04:27 03:52 03:52 WBC RBC 5.62 H MCV 74 L MCH 23 L MCHC 31 L Plt Count 124 L Lymph % (Auto) 12.8 L [place] % (Auto) 8.3 H Baso % (Auto) [place] # (Auto) Baso # (Auto) Seg Neutrophils % 74.5 H Seg Neutrophils # PT 15.2 H BUN 28 H Glucose Total Bilirubin 1.60 H Albumin 3.5 L Allied health notes reviewed: nursing
--- NOTE | 2022-05-10 12:58 | Progress Note ---
Assessment and Plan - Patient Problems (1) Symptomatic bradycardia Current Visit: Yes Status: Acute Plan to address problem: 89-year-old man admitted with symptomatic marked sinus bradycardia at 32, laboratory values including TSH level are unremarkable. Echocardiogram on this presentation normal left ventricular systolic function with ejection fraction 65%. He is status post implantation of a dual-chamber pacemaker. He is stable for cardiac discharge, follow-up with the community ambassador in 7 to 10 days. Subjective Date of service: 05/10/22 Principal diagnosis: Symptomatic Bradycardia; HTN; AMS; Dementia; Thrombocytopenia Interval history: Patient is comfortable, no complaints following his dual-chamber pacemaker implant. The pacemaker site is well-healed, no bleeding, no ecchymosis. On deckhand, he has a dual-chamber paced rhythm at 60. Blood pressure is elevated but he has just received his amlodipine. Objective Vital Signs Temp Pulse Pulse Resp BP Pulse Ox 05/10/22 12:00 61 14 159/78 100 05/10/22 11:00 98.1 F 60 14 147/66 98 05/10/22 10:00 60 22 146/76 99 05/10/22 09:46 60 176/72 05/10/22 09:00 60 15 176/72 100 05/10/22 08:00 60 16 160/67 96 05/10/22 07:00 60 16 144/64 99 05/10/22 06:00 60 16 157/75 99 05/10/22 05:00 60 16 147/67 98 05/10/22 04:00 60 16 148/75 98 05/10/22 03:00 98.2 F 60 18 140/69 98 05/10/22 02:00 60 19 175/68 98 05/10/22 01:00 60 16 137/58 98 05/10/22 00:00 60 16 169/61 98 05/09/22 23:00 99.5 F 60 17 149/56 98 05/09/22 22:00 60 15 169/61 99 05/09/22 21:03 60 21 163/83 98 05/09/22 21:00 60 22 151/79 99 05/09/22 20:53 60 20 167/75 100 05/09/22 20:00 69 18 165/71 91 05/09/22 19:30 97.6 F 05/09/22 19:00 60 18 165/71 100 05/09/22 18:00 60 17 163/67 98 05/09/22 17:00 60 19 174/69 99 05/09/22 16:00 98.4 F 61 61 19 170/75 99 05/09/22 15:50 60 16 - Physical Examination General: No Apparent Distress HEENT: Positive: PERRL Neck: Positive: neck supple Cardiac: Positive: Irregularly Regular Lungs: Positive: Decreased Breath Sounds Neuro: Positive: Grossly Intact Abdomen: Positive: Unremarkable, Active Bowel Sounds Skin: Positive: Clear Extremities: Present: +1 Edema - Labs and Meds Cardiac Enzymes 05/10/22 Range/Units 03:52 AST 20 (5-40) units/L CBC 05/10/22 Range/Units 03:52 WBC 9.6 (4.5-11.0) K/mm3 RBC 5.62 H (3.65-5.03) M/mm3 Hgb 13.0 (11.8-15.2) gm/dl Hct 41.7 (35.5-45.6) % Plt Count 124 L (140-440) K/mm3 Lymph # (Auto) 1.2 (1.2-5.4) K/mm3 [place] # (Auto) 0.8 (0.0-0.8) K/mm3 Eos # (Auto) 0.4 (0.0-0.4) K/mm3 Baso # (Auto) 0.0 (0.0-0.1) K/mm3 Comprehensive Metabolic Panel 05/10/22 Range/Units 03:52 Sodium 142 (137-145) mmol/L Potassium 4.1 (3.6-5.0) mmol/L Chloride 105.3 (98-107) mmol/L Carbon Dioxide 23 (22-30) mmol/L BUN 28 H (9-20) mg/dL Creatinine 0.9 (0.8-1.3) mg/dL Glucose 84 (75-100) mg/dL Calcium 9.6 (8.4-10.2) mg/dL AST 20 (5-40) units/L ALT 9 (7-56) units/L Alkaline Phosphatase 73 (35-129) units/L Total Protein 7.7 (6.3-8.2) g/dL Albumin 3.5 L (3.9-5) g/dL - Allied health notes Allied health notes reviewed: nursing
[2022-05-10 14:06] VITALS: BP 134/66
--- NOTE | 2022-05-10 14:25 | Discharge Summary ---
<AILYN PEMBERTON - Last Filed: 05/10/22 17:34> Providers - Providers Date of Admission: 05/06/22 23:58 Date of discharge: 05/10/22 Attending physician: RATNA TINOCO MD 05/06/22 23:17 Consult to Cardiology [CONS] Stat Consulting Provider: KIKI WATSON Reason For Exam: symptomatic bradycardia 05/06/22 23:58 Consult to Dietitian/Nutrition [CONS] Routine Physician Instructions: Reason For Exam: Reason for Consult: Diet education 05/07/22 07:13 Consult to Physician [CONS] Routine Comment: Consulting Provider: JAZ BOSCH Physician Instructions: Reason For Exam: Bradycardia- on Dopamine drip 05/07/22 13:33 Consult to Physician [CONS] Routine Comment: chuy/ zuri Consulting Provider: GABRIEL THOMAS Physician Instructions: Reason For Exam: AMS 05/09/22 15:59 Occupational Therapy Evaluate and Treat [CONS] Routine Comment: Reason For Exam: Debility Physical Therapy Evaluation and Treat [CONS] Routine Comment: Reason For Exam: Debility Primary care physician: RESTAURANT ASSISTANT Hospitalization Reason for admission: AMS and symptomatic bradycardia Condition: Stable Hospital course: This is a 89-year-old male with known past medical history of HTN and dementia admitted for AMS and symptomatic bradycardia. Hospital Course to Date: 05/07: From review of records it appears that cardiology was consulted from the ED and recommended that dopamine be started on the patient and this was done patient has maintained a heart rate in the 55's. But continues with a metabolic encephalopathy of unknown source. I have tried to reach out to the family but no one has picked up the phone. We will continue current management we will obtain neurology consultation for the altered mental status we will obtain records from the OR. We will also await the urinalysis that has been ordered. Wean restraints as tolerated. It is unclear to me why the patient was on Lovenox outpatient. However patient has thrombocytopenia hope that the records will shed some light. 05/08: Patient remains in SB on the monitor, HR in the 40s-50s, still on dopamine gtt and hypertensive SBP in the 180s-190s this am. Per EP cardio plan for tentative PPM placement tomorrow. Wean dopanine gtt as tolerated to maintain HR in the 40-50s. Plan of care discussed with patient and his daughter at the bedside. All questions and concerns were addressed at this time. They verbalized understanding and agreed with current care plan. Medical records from the OR pending. 05/09: Patient remains stable on RA. off Dopamine gtt this am, SB on the monitor, HR in the high 30s-50s, VSS. Plan for dual chamber PPM placement today by EP cardio. 05/10: s/p dual chamber PPM implantation. Patient stable on RA this am, VSS. AV pacing on the monitor at 60. Denied any pain nor any discomfort at this time. PT/OT recommends Home health care at discharge. D/W Cardio patient is stable for discharge back home with [place]. Thorough discussion with the patient's at the bedside, discussing plan of care and post-op care and restrictions. Patient voiced he has a swimming competition coming up, advise patient to refrain swimming and exercising until he is clear by cardiology. Patient needs to follow up with inspector tubes cardiology within a week for further management. All questions and concerns were addressed at this time. Patient voiced understanding and agreed with current care plan. Information were also endorsed to patient's daughter. Patient's home medications reviewed with patient's daughter at the bedside, resume home meds. Per daughter, patient has refills no prescriptions needed. Assessment and Plan #Symptomatic Bradycardia #Hypertension #Moderate Pulmonary HTN - Presented with AMS, lightheadedness, and dizziness X2 days - EKG in the ED reveal SB, HR in the 30s - s/p Dopamine gtt - 2D Echo noted, LVEF 65-70%, with moderate pulmonary HTN RSVP 54 - EP Cardio and Cardiology is following - 05/09 s/ Dual chamber PPM implantation - Continue blood pressure monitor per protocol - Maintain SBP less than 160 - CCM is also following - Remains stable on RA, no respiratory distress noted - Outpatient follow up once more stable with pulmonary and cardio for further workup/eval for pulmonary HTN #Acute Metabolic Encephalopathy-resolved #Underlying history of Dementia - Probably secondary to above - CT scan of the head was unremarkable. - Mentation with significant improvement, fully AAO - Periods of agitation and increase agitation at night, possible sundowning - Frequent reorientation - Avoid benzodiazepine to reduce the possibility of delirium - PRN Analgesia for pain control - Maintenance of sleep-wake cycle - Fall precaution - Neurology is also following #Thrombocytopenia (POA) - Present on admit - H&H stable, no s/s of any active bleeding - On VTE proph - Continue to trend CBC - Transfuse for Hgb less than 7 - [facility] #GI/DVT Prophylaxis - PPI- Pepcid - Heparin SubQ - SCDs to bilateral lower extremities while in bed #Advance Care Planning - Disease education data, care plan, diagnoses, and prognosis were discussed with the patient and her daughter at the bedside. Patient is a FULL code. They acknowledged understanding and agreed with current care plan. Disposition: HOME / SELF CARE / HOMELESS Final Discharge Diagnosis (Prints w/discharge instructions): Bradycardia s/p Dual Chamber PPM implant Time spent for discharge: 35 Core Measure Documentation - Palliative Care Palliative Care/ Comfort Measures: Not Applicable - Core Measures Any of the following diagnoses?: none Exam - Physical Exam Narrative exam: General appearance: Present: no acute distress, cachectic - EENT Eyes: Present: PERRL, EOM intact ENT: hearing intact - Neck Neck: Present: normal ROM - Respiratory Respiratory effort: normal Respiratory: bilateral: diminished - Cardiovascular Rhythm: regular Heart Sounds: Present: S1 & S2 - Extremities Extremities: no ischemia, pulses intact, pulses symmetrical Peripheral Pulses: within normal limits - Abdominal General gastrointestinal: soft, non-distended, normal bowel sounds - Integumentary Integumentary: Present: warm, dry - Psychiatric Psychiatric: appropriate mood/affect, cooperative - Neurologic Neurologic: CNII-XII intact, moves all extremities - Allied Health Allied health notes reviewed: nursing, case management - Constitutional Vitals: Temp Pulse Resp BP Pulse Ox 98.1 F 61 23 134/66 97 05/10/22 11:00 05/10/22 14:00 05/10/22 14:00 05/10/22 14:00 05/10/22 14:00 Plan Activity: advance as tolerated, no driving until cleared by PCP (until clear by cardioloogy), fall precautions, other (No swimming/exercising until clear by Cardiology) Diet: low fat, low cholesterol, low salt Wound: open to air Special Instructions: no heavy lifting, home health RN Care Plan Goals: Please follow up with your primary care provider withing 7 to 10 days Follow up with Cardiology within 7days No heavy lifting, no swimming, and no exercising until clear by Cardiology If your symptoms returns, visit your nearest emergency department for further evaluation and treatment Follow up with: GETACHEW DAVIS MD [Staff Physician] - 7 Days PRIMARY CARE, [Primary Care Provider] - 7 Days <RATNA TINOCO - Last Filed: 05/11/22 10:28> Providers - Providers Date of Admission: 05/06/22 23:58 Attending physician: RATNA TINOCO MD 05/06/22 23:17 Consult to Cardiology [CONS] Stat Consulting Provider: KIKI WATSON Reason For Exam: symptomatic bradycardia 05/06/22 23:58 Consult to Dietitian/Nutrition [CONS] Routine Physician Instructions: Reason For Exam: Reason for Consult: Diet education 05/07/22 07:13 Consult to Physician [CONS] Routine Comment: Consulting Provider: JAZ BOSCH Physician Instructions: Reason For Exam: Bradycardia- on Dopamine drip 05/07/22 13:33 Consult to Physician [CONS] Routine Comment: noted/ zuri Consulting Provider: GABRIEL THOMAS Physician Instructions: Reason For Exam: AMS 05/09/22 15:59 Occupational Therapy Evaluate and Treat [CONS] Routine Comment: Reason For Exam: Debility Physical Therapy Evaluation and Treat [CONS] Routine Comment: Reason For Exam: Debility Primary care physician: RESTAUR[facility] ASSISTANT Hospitalization Hospital course: I saw and evaluated the patient. I agree with the findings and the plan of care as documented in the Nurse Practitioner's~note, with the following corrections and additions. Exam - Constitutional Vitals: Temp Pulse Resp BP Pulse Ox 98.1 F 61 23 134/66 97 05/10/22 11:00 05/10/22 14:00 05/10/22 14:00 05/10/22 14:00 05/10/22 14:00
[2022-05-10] MEDS ORDERED: SENNOSIDES 8.6 MG TAB PO SCH (22:00)
== END 2022-05-10 14:30 | disposition home health service (06) | DRG 242 ==
LOC: ED 17:04 → CC1 23:58
PROVIDERS: ADMIT Internal Medicine Geriatric Medicine; ATTEND Internal Medicine
PROC: 06HY33Z Insertion of Infusion Device into Lower Vein, Percutaneous Approach (ICD-10-PCS; 2022-05-06)
PROC: B54BZZA Ultrasonography of Right Lower Extremity Veins, Guidance (ICD-10-PCS; 2022-05-06)
PROC: 0JH606Z Insertion of Pacemaker, Dual Chamber into Chest Subcutaneous Tissue and Fascia, Open Approach (ICD-10-PCS; principal; 2022-05-09)
PROC: 02H63JZ Insertion of Pacemaker Lead into Right Atrium, Percutaneous Approach (ICD-10-PCS; 2022-05-09)
PROC: 02HK3JZ Insertion of Pacemaker Lead into Right Ventricle, Percutaneous Approach (ICD-10-PCS; 2022-05-09)
DX: I49.5 Sick sinus syndrome (principal); G93.41 Metabolic encephalopathy; I42.0 Dilated cardiomyopathy; I27.20 Pulmonary hypertension, unspecified; I10 Essential (primary) hypertension; E78.5 Hyperlipidemia, unspecified; F03.90 Unspecified dementia, unspecified severity, without behavioral disturbance, psychotic disturbance, mood disturbance, and anxiety; E86.0 Dehydration; D69.6 Thrombocytopenia, unspecified
CPT/HCPCS: 33208; 36415; 70450; 71045; 80048; 80053; 83735; 83880; 84100; 84439; 84443; 84484; 85025; 85027; 85610; 85730; 93005; 93306; G0378; J3490; C1781; C1785; C1892; C1898; C8929; J0461; J0690; J1200; J1265; J1630; J1644; J2250; J2270; J2704; J3010; J3360; J7030